=== PATIENT | male | born 1950 | race Caucasian/White ===

== ENCOUNTER → 2016-12-27 | Outpatient (CLI) | payer MEDICARE, BC ==
--- NOTE | 2016-12-27 15:04 | XR ---
EXAMINATION TYPE: XR KUB DATE OF EXAM: 12/27/2016 COMPARISON: NONE HISTORY: TECHNIQUE: One view abdominal series FINDINGS: No interval change. Multiple left-sided kidney stones are present, the largest towards the lower pole measures approximately 17 to 18 mm. There are at least 10 stones present. There is retained fecal debris correlate for fecal stasis. No obstruction or pneumoperitoneum evident . Arthropathy noted in the right hip, degenerative disc changes in the visualized spine Chronic deformity involving the right acetabulum noted. IMPRESSION: 1. Stable left-sided nephrolithiasis.
== END | disposition home or self-care (01) ==
LOC: RADXRMAIN 14:44
PROVIDERS: ATTEND Physician Assistant
DX: N20.0 Calculus of kidney (principal)
CPT/HCPCS: 74000

== ENCOUNTER → 2017-01-14 | Outpatient (CLI) | payer MEDICARE, OTHER ==
--- NOTE | 2017-01-15 07:21 | CT ---
EXAMINATION TYPE: CT abdomen pelvis wo con DATE OF EXAM: 01/14/2017 COMPARISON: Previous study dated 01/27/2016. HISTORY: Kidney stones CT DLP: 719.00 mGycm Automated exposure control for dose reduction was used. FINDINGS: Visualized portions of the lungs are clear. There is no pleural or pericardial fluid. The h eart is not enlarged. Within the abdomen, the liver, spleen and gallbladder appear normal. Both adrenal glands appear normal. The pancreas is unremarkable. The right kidney has a normal morphologic appearance. There are multiple calcifications within the le ft kidney. This is essentially unchanged from previous with the largest stone being in the lower pole and measuring approximately 1.3 cm. There is no evidence of hydronephrosis. There is mild atheromatous calcification of the aorta. There is no significant retroperitoneal, iliac or inguinal adenopathy. The bladder is unremarkable. There is extensive diverticular change involving the sigmoid colon with scattered diverticula elsewhe re throughout the left side of the colon. The appendix is normal. Small bowel loops are normal in caliber. There is no free fluid and no free air Both hips are nonspherical. There is degenerative disc disease and facet arthropathy and hypertrophic spondylosis throughout the spine. IMPRESSION: 1. NONOBSTRUCTING LEFT-SIDED NEPHROLITHIASIS, ESSENTIALLY UNCHANGED FROM PREVIOUS. 2. DIVERTICULOSIS OF THE LEFT SIDE OF THE COLON. 3. BOTH HIPS ARE NONSPHERICAL. PLEASE CORRELATE CLINICALLY FOR FEMOROACETABULAR IMPINGEMENT SYNDROME IMPINGEMENT SYNDROME. 4. DEGENERATIVE CHANGES WITHIN THE SPINE.
== END | disposition home or self-care (01) ==
LOC: RADCTMAIN 14:12
PROVIDERS: ATTEND Urology
DX: N20.0 Calculus of kidney (principal); K57.90 Diverticulosis of intestine, part unspecified, without perforation or abscess without bleeding
CPT/HCPCS: 74176

== ENCOUNTER 2017-02-06 10:15 | Inpatient (IN) | payer MEDICARE, OTHER ==
[2017-03-28 11:50] VITALS: BMI 28.7
[2017-04-03] MEDS ORDERED: Pre Op ABX Message 1 EACH MISC MISCELLANE ONE (05:00)
[2017-04-03] MEDS ORDERED: ONDANSETRON 4 MG/2 ML VIAL IVP ONE (05:59)
[2017-04-03] MEDS ORDERED: DEXAMETHASONE SOD PHOSPHATE 10 MG/ML 1 ML VIAL IV ONE (05:59)
[2017-04-03] MEDS ORDERED: SCOPOLAMINE 1.5MG/72HR PATCH TRANSDERM ONE (05:59)
[2017-04-03] MEDS ORDERED: LIDOCAINE 1% 20 ML VIAL (10MG/ML) FOR IV START INTRADERMA PRN (05:59)
[2017-04-03] MEDS ORDERED: MIDAZOLAM 2 MG/2 ML VIAL IV PRN (05:59)
[2017-04-03] MEDS: LACTATED RINGERS 1,000 ML IV SCH (07:09)
[2017-04-03 07:23] LABS: Glucose,Whole Blood 139 mg/dL (75-99)
[2017-04-03] MEDS ORDERED: GLYCOPYRROLATE 0.2 MG/ML 2 ML VIAL ONE (08:22)
[2017-04-03] MEDS ORDERED: LIDOCAINE 1% INJ 10MG/ML (20 ML MDV) ONE (08:22)
[2017-04-03] MEDS ORDERED: PROPOFOL 10 MG/ML 20 ML VIAL IV ONE (08:22)
[2017-04-03] MEDS ORDERED: ROCURONIUM BROMIDE 10 MG/ML 10 ML VIAL IV ONE (08:22)
[2017-04-03] MEDS ORDERED: NEOSTIGMINE 1 MG/ML 10 ML VIAL ONE (08:22)
[2017-04-03] MEDS ORDERED: SUCCINYLCHOLINE CHLORIDE 100 MG/5 ML SYR IV ONE (08:22)
[2017-04-03] MEDS ORDERED: MIDAZOLAM 2 MG/2 ML VIAL ONE (08:22)
[2017-04-03] MEDS ORDERED: fentaNYL (PF) 50 MCG/ML 2 ML AMP ONE (08:22)
--- NOTE | 2017-04-03 08:26 | XR ---
Abdomen HISTORY: Left renal calculus Frontal view of the abdomen correlated prior abdomen 12/27/2016, CT abdomen pelvis 01/14/2017 Multiple calculi are present within the left kidney. Largest calcification measures approximately 15 mm, there are at least 10 calcifications suspected. There is retained fecal debris throughout much of the colon. No pneumoperitoneum or bowel obstruction. Degenerative disc changes are present within th e visualized spine. Lung bases are not included on the exam. IMPRESSION: Left nephrolithiasis.
[2017-04-03] MEDS ORDERED: IOHEXOL 350 MG/ML (PER ML) 100ML BTL MISCELLANE ONE (10:16)
[2017-04-03] MEDS ORDERED: ONDANSETRON 4 MG/2 ML VIAL IVP PRN (10:45)
[2017-04-03] MEDS ORDERED: MAG HYDROX/AL HYDROX/SIMETH 30 ML CUP PO PRN (10:45)
[2017-04-03] MEDS ORDERED: ACETAMINOPHEN TAB 325 MG TAB PO PRN (10:45)
[2017-04-03] MEDS ORDERED: NALOXONE 0.4 MG/ML 1 ML VIAL IV PRN (10:48)
[2017-04-03] MEDS ORDERED: HYDROmorphone PCA 5 MG/25 ML SYRINGE IV PRN (10:48)
--- NOTE | 2017-04-03 10:57 | P.OP ---
Date of Procedure: 04/03/17 Preoperative Diagnosis: Left renal calculi large, malrotation of left kidney postsurgical Postoperative Diagnosis: Same Procedure(s) Performed: Cystoscopy, placement of 5-Ethiopian occluding balloon catheter, the penis nephrostomy (Dr. Bynum) percutaneous nephrostolithotomy at ultrasound placement of 12 J nephrostomy Anesthesia: BONIFACIO Surgeon: Alvino Manzanares Estimated Blood Loss (ml): 400 Pathology: other Condition: stable (Stone) Disposition: PACU Indications for Procedure: The patient is a 67-year-old gentleman with a history of kidney stone disease. He had a partial nephrectomy many years ago for kidney stones. He has a malrotated kidney secondarily. It a percutaneous nephrostolithotomy about 10 years ago. He has been having recurrent pain. A computed tomography scan in follow-up identified a large volume of kidney stones throughout the kidney. He comes for percutaneous nephrostolithotomy. Description of Procedure: Patient is brought to the operating suite he is given a successful general endotracheal anesthesia on the transport gurney. He is prepped and draped sterilely and cystoscopy with a 22-Ethiopian sheath and Foroblique lens identifies a normal urethra, nonobstructing prostate. The bladder is unremarkable. The left ureteral office is identified and intubated with a 5-Ethiopian occluding balloon catheter. Over an 0. 25 wire the catheter is passed up into the renal pelvis. The patient is placed in prone position with care to airways and extremities. Dr. Lipscomb of radiology performed percutaneous access to a left lower pole calyx. Of note is a malrotation of the kidney. The ureter goes anterior and in courses lateral. The upper pole collecting system runs posterior to the ureter and an AP traction. The lower pole is inferior and posterior on an AP projection. We were able to access the lower pole calyx. We with some difficulty unable to pass the catheter down the ureter. We dilate the collecting system to 30-Ethiopian and introduced a 30-Ethiopian sheath. It is markedly scarred doing this. It reduced the rigid scope into the collecting system. There is a moderate amount of bleeding due to the scarring. Unable to remove a large volume of kidney stones using grasping forceps and the ultrasound to break it up however there is still remaining stone. The flexible scope into another calyx and the lower pole however the bleeding becomes significant enough that I'm unable to see adequately. An pass the scope up in the UPJ area. I attempted to identify the upper pole calyx but I'm unable to do so. I elected terminate the procedure due to the bleeding. With difficulty I am able to eventually get a 12-Ethiopian J nephrostomy tube over the wire and leave it in the renal pelvis course and out through the lower pole calyx. The patient is awake and returned recovery room good condition. Blood loss is about 400 mL. He will need a secondary nephrostolithotomy. He may need a second nephrostomy access.
[2017-04-03] MEDS: HYDROmorphone 0.5 MG/0.5 ML SYRINGE IVP PRN ×2 (11:02→11:10)
[2017-04-03 11:27] LABS: Glucose,Whole Blood 180 mg/dL (75-99)
[2017-04-03 11:29] VITALS: RESP 16
--- NOTE | 2017-04-03 11:36 | FL ---
EXAMINATION TYPE: FL Perc Nephrostomy New Access DATE OF EXAM: 04/03/2017 COMPARISON: CT 01/06/2017 HISTORY: Left-sided nephrolithiasis PROCEDURE: Maximal barrier technique was utilized. The skin overlying the left kidney was localized using fluor oscopy and the overlying skin prepped and draped. Lidocaine used for local anesthesia. Skin clarissa wa s made with a scalpel. Access was gained under fluoroscopy, following placement of a ureteral occlus ion balloon by the referring clinician and instillation of air in the renal collecting system with a 21-gauge needle to the kidney. A suitable posterior calyx was chosen. A 0.018 inch wire was advanc ed. The access site was dilated and subsequently a sheath was advanced into the renal pelvis followi ng dilation with balloon along the tract. Urine returned in the hub of the catheter. The patient unde rwent nephrolithotomy by the referring clinician. The patient remained in stable condition without complication. The patient was discharged to observation. IMPRESSION: STATUS POST NEPHROSTOMY PLACEMENT FOR NEPHROLITHOTOMY WITH FLUOROSCOPIC GUIDANCE. THIS PROCEDURE PER FORMED BY THE UNDERSIGNED.
[2017-04-03] MEDS: SODIUM CHLORIDE 0.45% 1,000 ML IV SCH ×2 (12:15→21:04)
[2017-04-03] MEDS: KETOROLAC 30 MG/ML 1 ML VIAL IVP SCH ×2 (14:36→16:58)
[2017-04-03] MEDS: INSULIN ASPART 100 UNIT/ML 1 ML 10 ML VIAL SQ SCH ×3 (14:36→21:01)
[2017-04-03 16:31] LABS: Glucose,Whole Blood 175 mg/dL (75-99)
[2017-04-03 20:32] LABS: Glucose,Whole Blood 142 mg/dL (75-99)
[2017-04-03] MEDS: metFORMIN 500 MG TAB PO SCH (21:00)
[2017-04-04] MEDS: KETOROLAC 30 MG/ML 1 ML VIAL IVP SCH ×5 (00:43→23:02)
[2017-04-04] MEDS: LACTATED RINGERS 1,000 ML IV SCH (04:57)
[2017-04-04 07:59] LABS: Glucose,Whole Blood 138 mg/dL (75-99)
[2017-04-04] MEDS: INSULIN ASPART 100 UNIT/ML 1 ML 10 ML VIAL SQ SCH ×4 (08:41→21:13)
[2017-04-04] MEDS: amLODIPine 5 MG TAB PO SCH (08:42)
[2017-04-04] MEDS: LINAGLIPTIN 5 MG TABLET PO SCH (08:42)
[2017-04-04] MEDS: metFORMIN 500 MG TAB PO SCH ×2 (08:42→21:09)
[2017-04-04] MEDS ORDERED: HYDROcodone/APAP 5-325MG 1 EACH TAB PO PRN (10:12)
[2017-04-04 11:24] LABS: Glucose,Whole Blood 137 mg/dL (75-99)
--- NOTE | 2017-04-04 12:49 | P.PN ---
Subjective The patient is in his first postoperative day from a left percutaneous nephrostolithotomy, incomplete. He had a large volume of stone that was removed but a large volume he remains. Bleeding occurred due to significant scarring of his collecting system from previous surgeries including a partial nephrectomy. He will require a secondary nephrostolithotomy. This is been discussed with the patient. Arrangements will be made for next week. Objective - Vital Signs Vital signs: Vital Signs Temp 97.3 F L 04/04/17 00:00 Pulse 68 04/04/17 09:00 Resp 16 04/04/17 09:00 BP 123/56 04/04/17 00:00 Pulse Ox 95 04/04/17 00:00 Intake & Output 04/03/17 04/04/17 04/04/17 18:59 06:59 18:59 Intake Total 1975 1500 250 Output Total 1450 1525 228 Balance 525 -25 22 Intake: IV 1974 Intake, IV Titration 1100 Amount Sodium Chloride 0.45% 1, 1100 000 ml @ 100 mls/hr IV . Q10H [facility] Rx#:[id number] Oral 400 250 Output: Drainage 150 275 3 Left 150 275 3 Urine 900 1250 225 Uretheral (Caba) 350 Estimated Blood Loss 400 Other: Voiding Method Indwelling Catheter Indwelling Catheter Indwelling Catheter # Voids 1 - Labs Labs: Abnormal Lab Results - Last 24 Hours (Table) 04/03/17 04/03/17 04/04/17 Range/Units 16:28 20:01 07:45 POC Glucose (mg/dL) 175 H 142 H 138 H (75-99) mg/dL 04/04/17 Range/Units 11:20 POC Glucose (mg/dL) 137 H (75-99) mg/dL
[2017-04-04 17:13] LABS: Glucose,Whole Blood 141 mg/dL (75-99)
[2017-04-04 20:06] LABS: Glucose,Whole Blood 167 mg/dL (75-99)
[2017-04-05] MEDS: SODIUM CHLORIDE 0.45% 1,000 ML IV SCH ×3 (00:24→05:20)
[2017-04-05] MEDS: KETOROLAC 30 MG/ML 1 ML VIAL IVP SCH (05:18)
[2017-04-05 07:10] VITALS: BP 146/73; PULSE 70; TEMP 97
[2017-04-05 07:16] LABS: Glucose,Whole Blood 138 mg/dL (75-99)
--- NOTE | 2017-04-05 07:39 | P.DS ---
Providers Date of admission: 04/03/17 06:53 Attending physician: Alvino Manzanares Primary care physician: [facility] Course: The patient was admitted to the hospital 04/03/2017 for a left percutaneous nephrostolithotomy. This was done but incompletely due to complicated anatomy from previous partial nephrectomy as well as some bleeding. He has recuperated nicely. He'll be discharged home and have a secondary nephrostolithotomy next week. He'll be discharged home with the nephrostomy tube. He will also be given a prescription of [place]. He'll resume his home medications. I will contact him with arrangements. Patient Condition at Discharge: Good Plan - Discharge Summary Discharge Rx Participant: Yes New Discharge Prescriptions: New HYDROcodone/APAP 5-325MG [[place] 5-325] 1 tab PO Q4HR PRN #20 tab PRN Reason: Pain Control No Action metFORMIN HCL [Metformin HCl ER] 1,000 mg PO BID amLODIPine BESYLATE [Amlodipine Besylate] 5 mg PO DAILY Simvastatin 40 mg PO HS sitaGLIPtin [Januvia] 50 mg PO DAILY valACYclovir [Valtrex] 500 mg PO DAILY PRN PRN Reason: Cold Sores Aspirin 81 mg PO DAILY Multivitamin [Men's Multi-Vitamin] 1 tab PO DAILY Discharge Medication List Simvastatin 40 mg PO HS 02/10/15 [History] amLODIPine BESYLATE [Amlodipine Besylate] 5 mg PO DAILY 02/10/15 [History] metFORMIN HCL [Metformin HCl ER] 1,000 mg PO BID 02/10/15 [History] sitaGLIPtin [Januvia] 50 mg PO DAILY 01/27/16 [History] valACYclovir [Valtrex] 500 mg PO DAILY PRN 01/27/16 [History] Aspirin 81 mg PO DAILY 02/01/16 [History] Multivitamin [Men's Multi-Vitamin] 1 tab PO DAILY 02/01/16 [History] HYDROcodone/APAP 5-325MG [[place] 5-325] 1 tab PO Q4HR PRN #20 tab 04/05/17 [Rx] Activity/Diet/Wound Care/Special Instructions: Discharge home with nephrostomy tube. I am making arrangements for a secondary percutaneous nephrostolithotomy and will contact the patient. Discharge Disposition: HOME SELF-CARE
[2017-04-05] MEDS: INSULIN ASPART 100 UNIT/ML 1 ML 10 ML VIAL SQ SCH (08:10)
[2017-04-05] MEDS: LINAGLIPTIN 5 MG TABLET PO SCH (08:10)
[2017-04-05] MEDS: metFORMIN 500 MG TAB PO SCH (08:11)
[2017-04-05] MEDS: amLODIPine 5 MG TAB PO SCH (08:11)
== END 2017-04-05 10:32 | disposition home or self-care (01) | DRG 661 ==
LOC: 2ORMAIN 04-03 06:53 → 3SUR 04-03 12:05
PROVIDERS: ADMIT Urology; ATTEND Urology
PROC: 0TC18ZZ Extirpation of Matter from Left Kidney, Via Natural or Artificial Opening Endoscopic (ICD-10-PCS; 2017-04-03)
PROC: 0T9430Z Drainage of Left Kidney Pelvis with Drainage Device, Percutaneous Approach (ICD-10-PCS; principal; 2017-04-03 08:30)
DX: N20.0 Calculus of kidney (principal); I10 Essential (primary) hypertension; Q63.2 Ectopic kidney; Z90.5 Acquired absence of kidney; Z79.84 Long term (current) use of oral hypoglycemic drugs; Z79.82 Long term (current) use of aspirin; Z79.899 Other long term (current) drug therapy; Z88.2 Allergy status to sulfonamides; E78.00 Pure hypercholesterolemia, unspecified; Z85.828 Personal history of other malignant neoplasm of skin; Z82.49 Family history of ischemic heart disease and other diseases of the circulatory system; Z82.3 Family history of stroke; Z87.891 Personal history of nicotine dependence
CPT/HCPCS: 36415; 50432; 74000; 82365; 83036; 86850; 86900; 86901

== ENCOUNTER → 2017-03-27 | Outpatient (CLI) | payer MEDICARE, OTHER ==
[2017-03-27 13:11] LABS: Basophils # (A) 0.1 k/uL (0-0.2); Basophils % (A) 1 %; CH 29.9; CHCM 32.4; Eosinophils # (A) 0.1 k/uL (0-0.7); Eosinophils % (A) 1 %; HCT 45.5 % (39.0-53.0); HDW 2.79; HGB 14.5 gm/dL (13.0-17.5); Luc # (Auto) 0.16; Luc % (Auto) 2; Lymphocytes # (A) 1.7 k/uL (1.0-4.8); Lymphocytes % (A) 21 %; MCH 29.5 pg (25.0-35.0); MCHC 31.8 g/dL (31.0-37.0); MCV 92.8 fL (80.0-100.0); Mean Platelet Volume 7.6; Monocytes # (A) 0.4 k/uL (0-1.0); Monocytes % (A) 6 %; Neutrophils # (A) 5.4 k/uL (1.3-7.7); Neutrophils % (A) 69 %; RBC 4.91 m/uL (4.30-5.90); RDW 14.7 % (11.5-15.5); WBC 7.9 k/uL (3.8-10.6); WBC (Perox) 7.92
[2017-03-27 13:25] LABS: ALT 62 U/L (21-72); AST 39 U/L (17-59); Alkaline Phosphatase 81 U/L (38-126); Anion Gap 9 mmol/L; Blood Urea Nitrogen 16 mg/dL (9-20); Carbon Dioxide 29 mmol/L (22-30); Chloride 104 mmol/L (98-107); Glucose 116 mg/dL (74-99); Non-African American GFR(MDRD) >60 (>60 ml/min/1.73 sqM); Potassium 4.6 mmol/L (3.5-5.1); Sodium 142 mmol/L (137-145); Total Bilirubin 0.6 mg/dL (0.2-1.3); Total Protein 7.4 g/dL (6.3-8.2)
[2017-03-27 13:36] LABS: Appearance,Urine Clear (Clear); Bacteria,Urine Rare /hpf; Bilirubin,Urine Negative (Negative); Glucose,Urine (UA) Negative (Negative); Ketones,Urine Negative (Negative); Leukocyte Esterase,Urine Trace (Negative); Mucus,Urine Rare /hpf; Nitrite,Urine Negative (Negative); PH, Urine 6.5 (5.0-8.0); Particle Count 1709; Protein,Urine Negative (Negative); RBC,Urine 4 /hpf (0-5); Specific Gravity,Urine 1.012 (1.001-1.035); Squamous Epithelial Cell,Urine <1 /hpf (0-4); UA Billing (MACRO vs. MICRO) MICRO; Urobilinogen,Urine <2.0 mg/dL (<2.0); WBC,Urine 3 /hpf (0-5)
== END | disposition home or self-care (01) ==
LOC: LABPAT 11:39
PROVIDERS: ATTEND Urology
DX: Z01.812 Encounter for preprocedural laboratory examination (principal); N20.0 Calculus of kidney; E78.00 Pure hypercholesterolemia, unspecified; N39.0 Urinary tract infection, site not specified; R35.0 Frequency of micturition; R31.29 Other microscopic hematuria
CPT/HCPCS: 36415; 80053; 81001; 85025; 86850; 86900; 86901; 87086

== ENCOUNTER 2017-04-10 07:29 | Day surgery (SDC) | payer MEDICARE, OTHER ==
[2017-04-09 10:21] VITALS: BMI 28.3
[~2017-04-10 07:29] MED LIST: DEXAMETHASONE SOD PHOSPHATE 10 MG/ML 1 ML VIAL IV ONE; GENTAMICIN 120 MG in SODIUM CHLORIDE 0.9% 100 ML IVPB ONE; HYDROmorphone 0.5 MG/0.5 ML SYRINGE IVP PRN; MIDAZOLAM 2 MG/2 ML VIAL IV PRN; ONDANSETRON 4 MG/2 ML VIAL IVP ONE
--- NOTE | 2017-04-10 07:46 | XR ---
Abdomen HISTORY: Kidney stones Frontal view of the abdomen submitted on 2 images and correlated to prior exam of 04/03/2017 Interval placement of a left-sided nephrostomy tube. Multiple calcifications are present over the lef t kidney, there is reduction number of calcifications. Lung bases are clear. Bowel gas may obscure de tail. IMPRESSION: Interval procedural changes. Left-sided nephrolithiasis.
[2017-04-10 08:23] LABS: Glucose,Whole Blood 126 mg/dL (75-99)
[2017-04-10 08:32] LABS: CH 29.3; CHCM 32.6; HCT 36.9 % (39.0-53.0); HDW 2.95; HGB 12.1 gm/dL (13.0-17.5); MCH 29.9 pg (25.0-35.0); MCHC 32.9 g/dL (31.0-37.0); MCV 90.7 fL (80.0-100.0); Mean Platelet Volume 9.3; RBC 4.07 m/uL (4.30-5.90); RDW 15.7 % (11.5-15.5); WBC 9.4 k/uL (3.8-10.6)
[2017-04-10] MEDS ORDERED: LIDOCAINE 1% 20 ML VIAL (10MG/ML) FOR IV START INTRADERMA ONE (08:32)
[2017-04-10] MEDS: LACTATED RINGERS 1,000 ML IV SCH (08:33)
[2017-04-10 08:39] LABS: Anion Gap 11 mmol/L; Blood Urea Nitrogen 20 mg/dL (9-20); Calcium 9.7 mg/dL (8.4-10.2); Carbon Dioxide 23 mmol/L (22-30); Chloride 105 mmol/L (98-107); Glucose 127 mg/dL (74-99); Non-African American GFR(MDRD) >60 (>60 ml/min/1.73 sqM); Sodium 139 mmol/L (137-145)
[2017-04-10 08:42] LABS: Potassium 5.2 mmol/L (3.5-5.1)
[2017-04-10] MEDS ORDERED: HYDROmorphone (PF) 1 MG/ML ONE (10:24)
[2017-04-10] MEDS ORDERED: SUCCINYLCHOLINE CHLORIDE 100 MG/5 ML SYR IV ONE (10:24)
[2017-04-10] MEDS ORDERED: ePHEDrine SULFATE/0.9% NACL/PF 50 MG/5 ML SYRINGE IV ONE (10:24)
[2017-04-10] MEDS ORDERED: MIDAZOLAM 2 MG/2 ML VIAL ONE (10:24)
[2017-04-10] MEDS ORDERED: PROPOFOL 10 MG/ML 20 ML VIAL IV ONE (10:24)
[2017-04-10] MEDS ORDERED: LIDOCAINE 1% INJ 10MG/ML (20 ML MDV) ONE (10:24)
[2017-04-10] MEDS ORDERED: PHENYLEPHRINE-0.9% NACL SYG 1 MG/10 ML SYRINGE ONE (10:24)
[2017-04-10] MEDS ORDERED: fentaNYL (PF) 50 MCG/ML 2 ML AMP ONE (10:24)
[2017-04-10] MEDS ORDERED: IOHEXOL 350 MG/ML (PER ML) 100ML BTL MISCELLANE ONE ×2 (10:53)
[2017-04-10] MEDS ORDERED: HYDROcodone/APAP 5-325MG 1 EACH TAB PO PRN (12:08)
[2017-04-10] MEDS ORDERED: MAG HYDROX/AL HYDROX/SIMETH 30 ML CUP PO PRN (12:09)
[2017-04-10] MEDS ORDERED: ONDANSETRON 4 MG/2 ML VIAL IVP PRN (12:09)
[2017-04-10] MEDS ORDERED: ACETAMINOPHEN TAB 325 MG TAB PO PRN (12:09)
[2017-04-10] MEDS ORDERED: NALOXONE 0.4 MG/ML 1 ML VIAL IV PRN (12:11)
[2017-04-10] MEDS ORDERED: HYDROmorphone PCA 5 MG/25 ML SYRINGE IV PRN (12:11)
[2017-04-10] MEDS ORDERED: SODIUM CHLORIDE 0.45% 1,000 ML IV SCH (12:15)
--- NOTE | 2017-04-10 12:16 | P.OP ---
Date of Procedure: 04/10/17 Preoperative Diagnosis: Retained left renal calculi, distorted left renal anatomy post partial nephrectomy Postoperative Diagnosis: Same Procedure(s) Performed: Secondary percutaneous nephrostolithotomy, replacement of 12-Urdu J nephrostomy Anesthesia: BONIFACIO Surgeon: Alvino Manzanares Estimated Blood Loss (ml): 300 Pathology: other (Stone) Condition: stable Disposition: PACU Indications for Procedure: The patient is 67. Many years ago 8 a partial nephrectomy for kidney stones. He still has had recurrent stone disease. He has markedly distorted anatomy from the partial nephrectomy. He underwent percutaneous nephrostolithotomy a week ago for a large volume of left renal calculi. I removed about half the stone but due to bleeding from the scarring from the kidney the procedure was terminated. He comes for a secondary nephrostolithotomy today. Description of Procedure: Patient is brought to the operating suite and given a general endotracheal anesthesia. A Caba catheters placed sterilely. He's placed in a prone position on the operating table. Fluoroscopy identifies established nephrostomy tube. Through the 12 J nephrostomy and 035 Glidewire is passed down into the distal ureter. I removed the J nephrostomy and over this elect to dilate leading balloon in order to place a large sheath remove stone. It was extremely difficult to do this due to scarring. I'm able to eventually get the nephrostomy tube sheath into the kidney. There is a moderate amount of bleeding. The seems to subside. I looked throughout the collecting system best I can with the flexible nephroscope identify 3 large stones are basketed. I just cannot identify due to edema noted anatomy. Acted terminate the procedure. Place a 12 J nephrostomy tube over the working wire and remove the wire. It is secured to the skin with 2-0 silk. Patient awake and returned recovery in good condition. It is whether I need to do further procedures to try to remove stone or terminate the procedures. I'm afraid that he'll continue to have bleeding and difficulty. The options would be to remove the tube. To do a tertiary nephrostolithotomy here or at another center or to do nephrectomy. This will be discussed at length with the patient postoperatively. The patient returned recovery room good condition.
[2017-04-10] MEDS ORDERED: LACTATED RINGERS 1,000 ML IV ONE (12:35)
--- NOTE | 2017-04-10 14:13 | FL ---
Fluoroscopy HISTORY: Renal stones 1.54 minutes fluoroscopy time supplied to the referring clinician. 2 intraoperative C-arm images doc ument the procedure. See dictated report from urology.
[2017-04-10 15:00] VITALS: RESP 16
[2017-04-10 17:07] LABS: Glucose,Whole Blood 190 mg/dL (75-99)
[2017-04-10] MEDS: INSULIN ASPART 100 UNIT/ML 1 ML 10 ML VIAL SQ SCH ×2 (17:18→21:33)
[2017-04-10 20:17] LABS: Glucose,Whole Blood 194 mg/dL (75-99)
[2017-04-10] MEDS ORDERED: ATORVASTATIN 20 MG TAB PO SCH (21:00)
[2017-04-10] MEDS: CIPROFLOXACIN HCL 500 MG TAB PO SCH (21:30)
[2017-04-10] MEDS: metFORMIN 500 MG TAB PO SCH (21:30)
[2017-04-11 07:05] LABS: Glucose,Whole Blood 125 mg/dL (75-99)
[2017-04-11] MEDS: INSULIN ASPART 100 UNIT/ML 1 ML 10 ML VIAL SQ SCH (08:12)
[2017-04-11] MEDS: LACTATED RINGERS 1,000 ML IV SCH (08:12)
[2017-04-11 08:15] VITALS: BP 137/55; PULSE 73; TEMP 98.3
[2017-04-11] MEDS: metFORMIN 500 MG TAB PO SCH (08:28)
[2017-04-11] MEDS: CIPROFLOXACIN HCL 500 MG TAB PO SCH (08:28)
[2017-04-11] MEDS ORDERED: amLODIPine 5 MG TAB PO SCH (09:00)
[2017-04-11] MEDS ORDERED: LINAGLIPTIN 5 MG TABLET PO SCH (09:00)
--- NOTE | 2017-04-11 10:06 | P.DS ---
Providers Expected date of discharge: 04/11/17 Attending physician: Alvino Manzanares Primary care physician: Stated None Hospital Course: On the day of admission, the patient underwent a secondary left PCNL. Several large left renal calculi were removed, but the kidney could not be rendered stone free. The postoperative course was unremarkable. On the first postoperative day, he was comfortable. The Caba catheter was draining clear yellow urine. The nephrostomy tube was draining faintly pink tinged urine. He was afebrile with stable vital signs. Procedures: Secondary Left PCNL on 04/10/2017. Patient Condition at Discharge: Good Plan - Discharge Summary New Discharge Prescriptions: No Action metFORMIN HCL [Metformin HCl ER] 1,000 mg PO BID amLODIPine BESYLATE [Amlodipine Besylate] 5 mg PO DAILY Simvastatin 40 mg PO HS sitaGLIPtin [Januvia] 50 mg PO DAILY valACYclovir [Valtrex] 500 mg PO DAILY PRN PRN Reason: Cold Sores Aspirin 81 mg PO DAILY Multivitamin [Men's Multi-Vitamin] 1 tab PO DAILY HYDROcodone/APAP 5-325MG [[place] 5-325] 1 tab PO Q4HR PRN #20 tab PRN Reason: Pain Control Ciprofloxacin HCl [Cipro] 500 mg PO Q12HR Discharge Medication List Simvastatin 40 mg PO HS 02/10/15 [History] amLODIPine BESYLATE [Amlodipine Besylate] 5 mg PO DAILY 02/10/15 [History] metFORMIN HCL [Metformin HCl ER] 1,000 mg PO BID 02/10/15 [History] sitaGLIPtin [Januvia] 50 mg PO DAILY 01/27/16 [History] valACYclovir [Valtrex] 500 mg PO DAILY PRN 01/27/16 [History] Aspirin 81 mg PO DAILY 02/01/16 [History] Multivitamin [Men's Multi-Vitamin] 1 tab PO DAILY 02/01/16 [History] HYDROcodone/APAP 5-325MG [[place] 5-325] 1 tab PO Q4HR PRN #20 tab 04/05/17 [Rx] Ciprofloxacin HCl [Cipro] 500 mg PO Q12HR 04/10/17 [History] Follow up Appointment(s)/Referral(s): Alvino Manzanares MD [STAFF PHYSICIAN] - 1 Week Activity/Diet/Wound Care/Special Instructions: Discharge home with nephrostomy tube. Please provide patient with some saline and syringes to irrigate the tube as needed. Diet as tolerated. No strenuous activity. Discharge Disposition: HOME SELF-CARE
[2017-04-11 11:41] LABS: Glucose,Whole Blood 116 mg/dL (75-99)
== END 2017-04-11 13:00 | disposition home or self-care (01) ==
LOC: OR 07:29 → 3SUR 11:55 → OR 04-11 13:00
PROVIDERS: ATTEND Urology
DX: N20.0 Calculus of kidney (principal); Z90.5 Acquired absence of kidney; Z87.442 Personal history of urinary calculi; E11.9 Type 2 diabetes mellitus without complications; Z79.84 Long term (current) use of oral hypoglycemic drugs; I10 Essential (primary) hypertension; E78.00 Pure hypercholesterolemia, unspecified; K21.9 Gastro-esophageal reflux disease without esophagitis; N41.9 Inflammatory disease of prostate, unspecified; Z87.891 Personal history of nicotine dependence; Z79.2 Long term (current) use of antibiotics; Z79.82 Long term (current) use of aspirin; Z79.899 Other long term (current) drug therapy; Z88.2 Allergy status to sulfonamides
CPT/HCPCS: 50435; 94760; 94762; 80048; 85027; 82365; 83036; 74000; C1769 ×2; J2250; J1580; J1100; Q9967; J2405; J2001; J3010; J1170 ×2; J2370; J0330; J2704

== ENCOUNTER → 2017-05-21 | Outpatient (CLI) | payer MEDICARE, OTHER ==
--- NOTE | 2017-05-21 12:49 | XR ---
EXAMINATION TYPE: XR KUB DATE OF EXAM: 05/21/2017 COMPARISON: 04/10/2017 HISTORY: Pain TECHNIQUE: One view abdominal series FINDINGS: Chronic deformity of the right acetabulum noted with arthropathy of the hips and degenerative change lower lumbar spine. There are 6 calcifications overlying the left kidney. Largest measures approximat shireen 1 cm. Vascular calcifications noted. Retained fecal debris throughout the colon. IMPRESSION: 1. Multiple left-sided renal calculi appear stable.
== END | disposition home or self-care (01) ==
LOC: RADXRMAIN 11:30
PROVIDERS: ATTEND Urology
DX: N20.0 Calculus of kidney (principal)
CPT/HCPCS: 74018

== ENCOUNTER → 2018-10-31 | Outpatient (CLI) | payer MEDICARE, OTHER ==
[2018-10-31 13:07] LABS: Basophils # (A) 0.1 k/uL (0-0.2); Basophils % (A) 1 %; Eosinophils # (A) 0.1 k/uL (0-0.7); Eosinophils % (A) 2 %; HCT 44.8 % (39.0-53.0); HGB 14.7 gm/dL (13.0-17.5); Lymphocytes # (A) 1.8 k/uL (1.0-4.8); Lymphocytes % (A) 26 %; MCH 29.8 pg (25.0-35.0); MCHC 32.9 g/dL (31.0-37.0); MCV 90.6 fL (80.0-100.0); Mean Platelet Volume 7.7; Monocytes # (A) 0.3 k/uL (0-1.0); Monocytes % (A) 5 %; Neutrophils # (A) 4.5 k/uL (1.3-7.7); Neutrophils % (A) 65 %; Platelet Count 259 k/uL (150-450); RBC 4.95 m/uL (4.30-5.90); RDW 14.5 % (11.5-15.5)
[2018-10-31 13:15] LABS: Partial Thromboplastin Time 24.3 sec (22.0-30.0); Prothrombin Time 10.3 sec (9.0-12.0)
--- NOTE | 2018-10-31 13:16 | XR ---
EXAMINATION TYPE: XR chest 2V DATE OF EXAM: 10/31/2018 COMPARISON: Prior chest x-ray 01/27/2016 HISTORY: Presurgical TECHNIQUE: Frontal and lateral views of the chest are obtained. FINDINGS: There is no focal air space opacity, pleural effusion, or pneumothorax seen. The cardiac silhouette size is within normal limits. The osseous structures are intact. IMPRESSION: No acute cardiopulmonary process.
[2018-10-31 13:22] LABS: ALT 63 U/L (21-72); AST 64 U/L (17-59); African American GFR (CKD) >90 (>60 ml/min/1.73 sqM); Albumin 4.8 g/dL (3.5-5.0); Alkaline Phosphatase 77 U/L (38-126); Anion Gap 9 mmol/L; Blood Urea Nitrogen 21 mg/dL (9-20); Calcium 10.6 mg/dL (8.4-10.2); Carbon Dioxide 29 mmol/L (22-30); Chloride 99 mmol/L (98-107); Glucose 157 mg/dL (74-99); Potassium 4.4 mmol/L (3.5-5.1); Sodium 137 mmol/L (137-145); Total Bilirubin 0.8 mg/dL (0.2-1.3)
[2018-10-31 13:27] LABS: Appearance,Urine Cloudy (Clear); Bacteria,Urine Rare /hpf; Bilirubin,Urine Negative (Negative); Blood,Urine Small (Negative); Color,Urine Yellow; Glucose,Urine (UA) Negative (Negative); Ketones,Urine Negative (Negative); Leukocyte Esterase,Urine Large (Negative); Mucus,Urine Rare /hpf; Nitrite,Urine Positive (Negative); Protein,Urine Trace (Negative); RBC,Urine 26 /hpf (0-5); Squamous Epithelial Cell,Urine 1 /hpf (0-4); Urobilinogen,Urine <2.0 mg/dL (<2.0); WBC,Urine >182 /hpf (0-5)
== END | disposition home or self-care (01) ==
LOC: LABPAT 11:51
PROVIDERS: ATTEND Orthopaedic Surgery Orthopaedic Surgery of the Spine
DX: Z01.818 Encounter for other preprocedural examination (principal); M48.00 Spinal stenosis, site unspecified; R06.02 Shortness of breath; Z01.812 Encounter for preprocedural laboratory examination
CPT/HCPCS: 36415; 71046; 80053; 81001; 85025; 85610; 85730; 86850; 86900; 86901; 87070; 93005

== ENCOUNTER 2018-11-02 11:35 | Emergency (ER) | payer MEDICARE, OTHER ==
[~2018-11-02 11:35] MED LIST changes: -DEXAMETHASONE SOD PHOSPHATE 10 MG/ML 1 ML VIAL IV ONE; -GENTAMICIN 120 MG in SODIUM CHLORIDE 0.9% 100 ML IVPB ONE; -HYDROmorphone 0.5 MG/0.5 ML SYRINGE IVP PRN; +LIDOCAINE 5% PATCH TOPICAL ONE; -MIDAZOLAM 2 MG/2 ML VIAL IV PRN; -ONDANSETRON 4 MG/2 ML VIAL IVP ONE
[2018-11-02] MEDS ORDERED: METHOCARBAMOL 750 MG TAB PO ONE (12:08)
[2018-11-02] MEDS ORDERED: KETOROLAC 30 MG/ML 1 ML VIAL IVP STA (12:08)
[2018-11-02] MEDS ORDERED: SODIUM CHLORIDE 0.9% 1,000 ML IV ONE (12:08)
--- NOTE | 2018-11-02 12:16 | ED ---
General Adult HPI - General Chief complaint: Back Pain/Injury Stated complaint: Back pain Time Seen by Provider: 11/02/18 11:47 Source: patient, EMS Mode of arrival: EMS Limitations: no limitations - History of Present Illness Initial comments: Patient is a 68-year-old male with a history of spinal stenosis, sciatica, previous laminectomy who presents with a chief complaint of acute on chronic back pain. This been going on for about 3 days. The patient characterizes pain on the lateral aspect of bilateral thighs, worse on the right. He states the pain starts in his back and radiates to that area. He denies any recent injury or recent inciting incident. He states the symptoms are aggravated by walking and moving, specifically crossing the leg over the other leg. He is tried taking anti-inflammatories, narcotic pain medication at home. The patient states that he is scheduled to have a lumbar fusion on the of this month. He denies fever, chills, admits to nausea secondary to pain, denies vomiting. He denies any bowel or bladder incontinence, he denies any numbness or tingling. - Related Data Home Medications Medication Instructions Recorded Confirmed Simvastatin 40 mg PO HS 02/10/15 11/02/18 amLODIPine BESYLATE [Amlodipine 5 mg PO DAILY 02/10/15 11/02/18 Besylate] metFORMIN HCL [Metformin HCl ER] 1,000 mg PO BID 02/10/15 11/02/18 Multivitamin [Men's Multi-Vitamin] 1 tab PO DAILY 02/01/16 11/02/18 Glucosamine/Chondr Zhao A Sod [Osteo 1 tab PO BID 11/02/18 11/02/18 Bi-Flex Caplet] Naproxen Sodium [Aleve] 220 mg PO Q8H PRN 11/02/18 11/02/18 Spironolactone-Hctz 25-25Mg 1 tab PO BID 11/02/18 11/02/18 [Aldactazide 25-25 MG] Tamsulosin [Flomax] 0.4 mg PO DAILY 11/02/18 11/02/18 glipiZIDE XL [Glucotrol XL] 5 mg PO DAILY 11/02/18 11/02/18 Previous Rx's Medication Instructions Recorded Ibuprofen [Motrin] 800 mg PO TID #20 tab 11/02/18 Lidocaine 5% Patch [Lidoderm 5% 1 patch TOPICAL DAILY #10 patch 11/02/18 Patch] Methocarbamol [Robaxin] 750 mg PO TID #12 tab 11/02/18 oxyCODONE HCL [Oxaydo] 5 mg PO Q6H PRN 3 Days #12 tab 11/02/18 Allergies Allergy/AdvReac Type Severity Reaction Status Date / Time Sulfa (Sulfonamide Allergy Rash/Hives Verified 11/02/18 12:34 Antibiotics) Review of Systems ROS Statement: Those systems with pertinent positive or pertinent negative responses have been documented in the HPI. ROS Other: All systems not noted in ROS Statement are negative. Gastrointestinal: Reports: nausea Musculoskeletal: Reports: back pain, myalgia Past Medical History Past Medical History: Cancer, Diabetes Mellitus, GI Bleed, Hearing Disorder / Deafness, Hyperlipidemia, Hypertension, Musculoskeletal Disorder, Osteoarthritis (OA), Prostate Disorder, Renal Disease, Skin Disorder Additional Past Medical History / Comment(s): prostatitis, prostate nodule, L Kidney Stones - LT KIDNEY SCARRED FROM MULT SURG and is partially functioning, L leg VARICOSE VEINS, Basal Cell skin CA with removal, N/T IN LT FOOT and OCC IN LT LEG due to back problems, L DROP FOOT - WEARS BRACE at times; HERNIATED DISC L4-5, hearing loss R ear, diverticulosis. recent admission for GI bleeding History of Any Multi-Drug Resistant Organisms: None Reported Past Surgical History: Back Surgery, Orthopedic Surgery, Tonsillectomy Additional Past Surgical History / Comment(s): Lumbar laminectomy, discectomy L4-L5, Lt Kidney Open Surg FOR STONES, Percutaneous Nephrostolithotomy - Mult., cystocscopies, ureteral catheter, Mo ROTATOR CUFF. EXC Basal Cell skin cancer of Back, colonoscopy, lower back pain injections. LEFT percutaneous nephrolithotomy on 04/03/17-has a drain in @ this time. Past Anesthesia/Blood Transfusion Reactions: No Reported Reaction Past Psychological History: ADD/ADHD Smoking Status: Former smoker Past Alcohol Use History: None Reported Past Drug Use History: None Reported - Past Family History Mother Family Medical History: CVA/TIA Additional Family Medical History / Comment(s): Mother had a brain aneurysm. Father Family Medical History: Congestive Heart Failure (CHF), Myocardial Infarction (VT) Sister(s) Family Medical History: Cancer, CVA/TIA, Diabetes Mellitus Additional Family Medical History / Comment(s): skin basal and squamous General Exam Limitations: no limitations General appearance: alert, in no apparent distress Head exam: Present: atraumatic, normocephalic Eye exam: Present: normal appearance ENT exam: Present: normal exam Neck exam: Present: normal inspection Respiratory exam: Present: normal lung sounds bilaterally. Absent: respiratory distress, wheezes Cardiovascular Exam: Present: regular rate, normal rhythm GI/Abdominal exam: Present: soft. Absent: distended, tenderness Rectal exam: Present: normal rectal tone Extremities exam: Present: normal inspection, full ROM. Absent: tenderness, calf tenderness Back exam: Present: muscle spasm, paraspinal tenderness, other (patient has a midline surgical incision scar that is well healed without erythema or evidence of infection. there is no tenderness to palpation or percussion of the spine. ). Absent: tenderness, CVA tenderness (R), CVA tenderness (L), vertebral tenderness Neurological exam: Present: alert, oriented X3, other (patient has equal strength and sensation. he is able to move all extremities normally. ). Absent: normal gait, motor sensory deficit Psychiatric exam: Present: normal affect, normal mood Skin exam: Present: warm, dry, intact Course Vital Signs 11/02/18 11:38 Temperature 98.0 F Pulse Rate 67 Respiratory 20 Rate Blood Pressure 149/82 O2 Sat by Pulse 98 Oximetry Medical Decision Making - Medical Decision Making Patient presents with a chief complaint of back pain with radiation to bilateral thighs. On initial evaluation, vitals are stable, patient is in no acute distress. He is neurologically intact, she denies any bowel or bladder dysfunction, he states that he is having normal bowel movements, he denies any perianal or saddle anesthesia. Pain is worsened when the patient is placed in a frog leg position and downward pressure is applied to the knee. At this time, suspect acute worsening of chronic back pain along with obturator syndrome. Patient will be treated symptomatically with 5 mg of oxycodone, Robaxin, Toradol, and a lidocaine patch. We'll check basic labs. 1:20 PM Laboratory evaluation is patient is unremarkable. On reevaluation, the patient says his pain is improved. At this time, patient is stable for discharge. He'll be prescribed a 3 day course of oxycodone along with Robaxin, Motrin, and lidocaine patches. He was instructed to follow-up with his neurosurgeon, return to the emergency department if any new or concerning symptoms arise. She has verbalize understanding. Long discussion with the patient regarding the use of oxycodone. I stated that it has a high potential for abuse, and cause respiratory depression. He was instructed to take it no sooner than every 6 hours, and to discard the medication after 3 days if he no longer needs it. - Lab Data Result diagrams: 11/02/18 12:45 11/02/18 12:45 Lab Results 11/02/18 11/02/18 Range/Units 12:45 12:45 WBC 9.0 (3.8-10.6) k/uL RBC 4.87 (4.30-5.90) m/uL Hgb 14.4 (13.0-17.5) gm/dL Hct 43.2 (39.0-53.0) % MCV 88.7 (80.0-100.0) fL MCH 29.6 (25.0-35.0) pg MCHC 33.4 (31.0-37.0) g/dL RDW 14.5 (11.5-15.5) % Plt Count 242 (150-450) k/uL Neutrophils % 82 % Lymphocytes % 11 % Monocytes % 4 % Eosinophils % 0 % Basophils % 1 % Neutrophils # 7.4 (1.3-7.7) k/uL Lymphocytes # 1.0 (1.0-4.8) k/uL Monocytes # 0.4 (0-1.0) k/uL Eosinophils # 0.0 (0-0.7) k/uL Basophils # 0.1 (0-0.2) k/uL Sodium 135 L (137-145) mmol/L Potassium 4.3 (3.5-5.1) mmol/L Chloride 99 (98-107) mmol/L Carbon Dioxide 27 (22-30) mmol/L Anion Gap 9 mmol/L BUN 20 (9-20) mg/dL Creatinine 0.78 (0.66-1.25) mg/dL Est GFR (CKD-EPI)AfAm >90 (>60 ml/min/1.73 sqM) Est GFR (CKD-EPI)NonAf >90 (>60 ml/min/1.73 sqM) Glucose 165 H (74-99) mg/dL Calcium 9.4 (8.4-10.2) mg/dL Disposition Clinical Impression: Back pain, Sciatica Disposition: HOME SELF-CARE Condition: Good Instructions (If sedation given, give patient instructions): Acute Low Back Pain (ED) Is patient prescribed a controlled substance at d/c from ED?: Yes When asked, does pt state using other controlled substances?: No If prescribed controlled substance>3 days was MAPS reviewed?: Prescribed <3 Days If opioid is for acute pain is fill amount 7 days or less?: Yes If Rx opioid, was Start Talking consent form obtained?: Yes Referrals: John Paul Estrada MD [Primary Care Provider] - 1-2 days
[2018-11-02 13:02] LABS: Basophils # (A) 0.1 k/uL (0-0.2); Basophils % (A) 1 %; Eosinophils % (A) 0 %; HCT 43.2 % (39.0-53.0); HGB 14.4 gm/dL (13.0-17.5); Lymphocytes % (A) 11 %; MCH 29.6 pg (25.0-35.0); MCHC 33.4 g/dL (31.0-37.0); MCV 88.7 fL (80.0-100.0); Mean Platelet Volume 7.6; Monocytes # (A) 0.4 k/uL (0-1.0); Monocytes % (A) 4 %; Neutrophils # (A) 7.4 k/uL (1.3-7.7); Neutrophils % (A) 82 %; Platelet Count 242 k/uL (150-450); RBC 4.87 m/uL (4.30-5.90); RDW 14.5 % (11.5-15.5)
[2018-11-02 13:09] LABS: African American GFR (CKD) >90 (>60 ml/min/1.73 sqM); Anion Gap 9 mmol/L; Blood Urea Nitrogen 20 mg/dL (9-20); Calcium 9.4 mg/dL (8.4-10.2); Carbon Dioxide 27 mmol/L (22-30); Chloride 99 mmol/L (98-107); Glucose 165 mg/dL (74-99); Potassium 4.3 mmol/L (3.5-5.1); Sodium 135 mmol/L (137-145)
[2018-11-02 14:07] VITALS: BP 120/69; PULSE 76; RESP 18; TEMP 98.6
== END 2018-11-02 14:06 | disposition home or self-care (01) ==
LOC: EC 11:35
DX: M54.42 Lumbago with sciatica, left side (principal); M54.41 Lumbago with sciatica, right side; E11.9 Type 2 diabetes mellitus without complications; E78.5 Hyperlipidemia, unspecified; I10 Essential (primary) hypertension; M19.90 Unspecified osteoarthritis, unspecified site; Z85.828 Personal history of other malignant neoplasm of skin; N42.9 Disorder of prostate, unspecified; F90.9 Attention-deficit hyperactivity disorder, unspecified type; Z87.891 Personal history of nicotine dependence; Z79.84 Long term (current) use of oral hypoglycemic drugs; Z79.899 Other long term (current) drug therapy; Z88.2 Allergy status to sulfonamides
CPT/HCPCS: 36415; 80048; 85025; 99284; 96374; 96361; J1885

== ENCOUNTER 2018-11-12 06:24 | Inpatient (IN) | payer MEDICARE, OTHER ==
[~2018-11-12 06:24] MED LIST changes: +BACITRACIN 50,000 UNIT, POLYMYXIN B 500,000 UNIT in SODIUM CHLORIDE 0.9% IRRIGATIO 1,00... IRRIGATION ONE; +LIDOCAINE 1% 20 ML VIAL (10MG/ML) FOR IV START INTRADERMA PRN; -LIDOCAINE 5% PATCH TOPICAL ONE; +ONDANSETRON 4 MG/2 ML VIAL IVP ONE; +ceFAZolin IN SWFI 2 GM/20 ML SYRINGE IVP ONE
[2018-11-12] MEDS: LACTATED RINGERS 1,000 ML IV SCH (06:54)
[2018-11-12 06:58] LABS: Glucose,Whole Blood 160 mg/dL (75-99)
[2018-11-12] MEDS ORDERED: ePHEDrine SULFATE/0.9% NACL/PF 50 MG/5 ML SYRINGE IV ONE (07:26)
[2018-11-12] MEDS ORDERED: NEOSTIGMINE 1 MG/ML 10 ML VIAL ONE (07:26)
[2018-11-12] MEDS ORDERED: PROPOFOL 10 MG/ML 20 ML VIAL IV ONE (07:26)
[2018-11-12] MEDS ORDERED: GLYCOPYRROLATE 0.2 MG/ML 2 ML VIAL ONE (07:26)
[2018-11-12] MEDS ORDERED: MIDAZOLAM 2 MG/2 ML VIAL ONE (07:26)
[2018-11-12] MEDS ORDERED: ROCURONIUM BROMIDE 10 MG/ML 10 ML VIAL IV ONE (07:26)
[2018-11-12] MEDS ORDERED: SUCCINYLCHOLINE CHLORIDE 100 MG/5 ML SYR IV ONE (07:26)
[2018-11-12] MEDS ORDERED: HYDROmorphone (PF) 1 MG/ML ONE (07:26)
[2018-11-12] MEDS ORDERED: LIDOCAINE 1% INJ 10MG/ML (20 ML MDV) ONE (07:26)
[2018-11-12] MEDS ORDERED: fentaNYL (PF) 50 MCG/ML 2 ML AMP ONE (07:26)
[2018-11-12] MEDS ORDERED: GELATIN SPONGE,ABSORB (LARGE) 1 EACH SPONGE TOPICAL ONE (07:46)
[2018-11-12] MEDS ORDERED: LIDOCAINE 0.5%-EPI 1:200,000 50 ML VIAL SQ ONE (07:46)
[2018-11-12] MEDS ORDERED: THROMBIN (BOVINE) 5,000 UNIT VIAL TOPICAL ONE (07:46)
[2018-11-12] MEDS ORDERED: LACTATED RINGERS 1,000 ML IV ONE (08:35)
[2018-11-12] MEDS ORDERED: BENZOCAINE/MENTHOL LOZENG 1 EACH LOZENGE MUCOUS MEM PRN (11:45)
[2018-11-12] MEDS ORDERED: HYDROmorphone 1 MG/ML 1 ML SYRINGE IVP PRN (11:45)
[2018-11-12] MEDS ORDERED: MAGNESIUM HYDROXIDE 2,400 MG/10 ML CUP PO PRN (11:45)
[2018-11-12] MEDS ORDERED: ONDANSETRON 4 MG/2 ML VIAL IVP PRN (11:46)
[2018-11-12] MEDS ORDERED: HYDROcodone/APAP 5-325MG 1 EACH TAB PO PRN (11:46)
--- NOTE | 2018-11-12 11:58 | P.OP ---
Date of Procedure: 11/12/18 Preoperative Diagnosis: Spinal stenosis L3 4 and L4 5, spondylolisthesis L3 4, history of prior laminectomy and discectomy L45 L5-S1, low back pain, lower extremity pain, lower extremity radiculopathy, partially weakness Postoperative Diagnosis: Same Anesthesia: GETA Pathology: none sent Condition: stable Disposition: PACU Description of Procedure: DESCRIPTION OF PROCEDURE(S): BRIEF OPERATIVE NOTE Preoperative Diagnosis: Spinal stenosis L3 4 and L4 5, spondylolisthesis L3 4, history of prior laminectomy and discectomy L45 L5-S1, low back pain, lower extremity pain, lower extremity radiculopathy, partially weakness Postoperative Diagnosis:Spinal stenosis L3 4 and L4 5, spondylolisthesis L3 4, history of prior laminectomy and discectomy L45 L5-S1, low back pain, lower extremity pain, lower extremity radiculopathy, partially weakness Procedure: Laminectomy and decompression L3 4 Revision laminectomy and decompression L4 5 Minimally invasive Posterior lateral decompression and fusion L3 4 and L4 5 Minimally invasive Transforaminal lumbar interbody fusion for a 360 fusion L3 4 Discectomy for decompression L3 4 Placement of interbody graft L3 4 Local autogenous bone grafting Harvesting of bone marrow aspirate from the vertebral body of L3 Use of Cell Saver Use of bone graft extenders Surgeon: Dr. Dutton Porter Sample Case: Flavio GARCIA who is present throughout the entire the case persistence during positioning, dissection, exposure, visualization, and all crucial elements of the case as well as closure. Anesthesia: General anesthesia Estimated blood loss: Approximately 500 mL with 280 given back through Cell Saver Complications: None apparent Components implanted: K2M minimally invasive Gary pedicle screw system with 6.5 x 50 mm screws and 270 mm rods and 1 Burt interbody cage measuring 11 mm with 1 Osteoamp sponge and 30 mL of DBX bone fibers to supplemental local autogenous bone graft Disposition: To recovery room in good stable condition. OPERATIVE INDICATIONS The patient has had long-standing issues in their lower back and lower extremities. Patient had a history of any years ago of having laminectomy and decompression with discectomy at L4 5 and L5-S1 he went on to have a fusion at L5-S1 and was having worsening of symptoms with severe stenosis L3 4 and stenosis at L4 5 . He was developing a dynamic listhesis at L3 4 as well. His symptoms correlated well with his findings of change at L3 4 and L4 5. The patient has been through conservative treatment. He is not having progressive benefit despite aggressive conservative treatment and was having worsening of his symptoms and weakness in his lower extremities. We discussed various treatment options including surgery, and the patient wishes to proceed with surgery We discussed the risk, patient's alternatives and benefits of surgery including but not limited to, risk of bleeding risk of infection, risk of need for further surgery, risk of decreased, loss of motion, muscle function, malunion nonunion, hardware failure, nerve damage, paralysis, heart attack, blindness and . OPERATIVE SUMMARY After discussing all the risks, patient alternatives and benefits at length, the patient elected to proceed with surgical intervention, signed informed consent, and presented for their procedure. The patient was seen and examined in the preoperative holding area and the surgical site was marked. The patient was given antibiotics and brought to the operating room. The patient was sedated and intubated by anesthesia in standard fashion. The patient was positioned on to the operating room table in a prone position on the appropriate frame which was well-padded and well molded. We were careful to pad any bony prominences and pressure points. We were careful to maintain the patient's cervical spine and good neutral alignment and position throughout. The patient was prepped and draped in a normal standard fashion. An appropriate timeout and keystone protocol performed. We were able to proceed with the surgery. The local wound area was infiltrated with local anesthetic. I was able utilize C-arm guidance to establish appropriate position over the pedicles bilaterally at the appropriate levels at L3 4 and 5. With the appropriate levels confirmed was able to make small stab incisions over the appropriate pedicle sites bilaterally. Utilizing C-arm in his house able to establish a Jamshidi needle over the lateral aspect of the pedicle and advanced the trocar into the pedicle being careful not to breech superiorly inferiorly medially or laterally. Position was confirmed regularly with AP and lateral images on C-arm. I was able to establish the trocar into the pedicle appropriately into the posterior aspect of the vertebral body bilaterally at the appropriate levels of L3 4 and 5. This was done at each of the pedicle positions and each of the vertebrae. At L3 on the right I was able to withdraw approximately 20 mL of bone marrow aspirate to use later in the case for supplement for the bone graft. I was able place the guidewire into the trocar and into the vertebral body appropriately under C-arm guidance. Dissection was taken down over the wire to the appropriate starting position for the screw placed. The appropriate length screw was chosen, threaded over the guidewire and screwed appropriately into the pedicle and vertebral body under C-arm guidance in excellent alignment and position with good bony purchase. This is done at each of the screw sites at the appropriate levels at L3 4 and 5 bilaterally. With the screws intact I extended the incision to connect the screw hole sites on the most symptomatic side on the left. I dissected down to establish access over the pars and lamina to the base of the spinous process. I was able to expose the facet joint. The capsule the facet was taken down and showed some facet arthrosis at the joint. I started at L3 4 and I was able to use a combination of curettes and Kerrison rongeurs and a high-speed drill to take down the facet joint and do a facetectomy. Partial laminectomy was also performed. I was able get excellent foraminal decompression and central decompression with undermining across midline to perform a laminectomy centrally and contralaterally. The patient had severe central and bilateral stenosis which was remedied with the decompression As able get good central decompression. The ligamentum flavum was taken down to further decompress centrally and at bilateral neural foramen. I was able to expose the disc space and visualize the traversing nerve root. Note was made of some disc protrusion at the level causing further compression of the nerve root. I was able to establish a annulotomy at the appropriate level protecting soft tissue and neura l structures. Note was made of some disc desiccation at the disc. I performed a complete discectomy with accommodation of curettes and rasps and scrapers. I was able get good endplate preparation at the disc space. I sized for the appropriate size interbody spacer protecting the soft tissue and neural structures. The wound was copiously irrigated and suctioned dry. There is no evidence of any dural tear or leak. I was able to pack the disc space with local autogenous bone graft as well as a small amount of bone graft which was also placed into the interbody cage itself. Protecting the soft tissue structures and neural structures I was able place the interbody cage in good alignment and good position with good fit and fill at the interbody space. His issues was confirmed with C-arm guidance. At L4 5 I provided a decompression with revision laminectomy and was able get central decompression with the revision laminectomy. There is severe collapse at the disc space and I was not able to access the disc space well enough to place a interbody spacer at L4-L5. I felt we had good stability with the pedicle screws at L4 5. Good hemostasis maintained. There is no evidence of any dural tear or leak. The wound was irrigated and suctioned dry. With the hardware intact at L3 4 and L4 5, intraoperative C-arm imaging was again taken which showed good alignment and position of the hardware at the appropriate levels. We were then able to measure, contour and place the rods and appropriate hardware bilaterally. I was able to place capcrews, tighten them down, and torque them with the torque screwdriver appropriately. With this intact I was able to place the local autogenous bone graft with additional bone graft enhancer as necessary into the posterior lateral gutters over the decorticated transverse processes. The remainder of the bone graft was placed over the facet joint on the contralateral side after taking down the facet joint capsule. With the bone graft intact, a stable construct, and good decompression at the appropriate levels, we were able to proceed with closure. Good hemostasis was maintained. There is no evidence of dural tear or leak. The fascia was closed for a watertight closure. he subcuticular tissue was closed with absorbable suture. The wound was cleaned and dried and dressed with the appropriate dressing. The drapes were broken down. The patient was gently rolled back onto their hospital bed being careful to maintain their cervical spine and good neutral alignment and position. They were woken up by anesthesia, extubated, and brought to the recovery room in good stable condition. The patient will be admitted to the hospital for appropriate postoperative care, medical management and monitoring. We will continue to follow them closely about the postoperative course.
[2018-11-12] MEDS ORDERED: CEPHALEXIN 500 MG CAP PO SCH (12:00)
[2018-11-12] MEDS: HYDROmorphone 0.5 MG/0.5 ML SYRINGE IVP PRN ×6 (12:09→17:50)
--- NOTE | 2018-11-12 12:55 | XR ---
Limited lumbar spine HISTORY: Status post lumbar fusion 2 intraoperative C-arm images document the procedure.
[2018-11-12] MEDS ORDERED: KETOROLAC 30 MG/ML 1 ML VIAL IVP ONE (13:18)
[2018-11-12 13:29] LABS: Glucose,Whole Blood 152 mg/dL (75-99)
--- NOTE | 2018-11-12 14:06 | FL ---
Fluoroscopy HISTORY: Pain 1 minute 52 seconds fluoroscopy time supplied to the referring clinician. 2 intraoperative C-arm chemo ges document the procedure. See dictated report from orthopedic surgery.
[2018-11-12] MEDS: SODIUM CHLORIDE 0.9% 1,000 ML IV SCH (15:00)
[2018-11-12 15:43] VITALS: BMI 29.9
[2018-11-12] MEDS: ceFAZolin IN SWFI 2 GM/20 ML SYRINGE IVP SCH ×2 (16:09→23:50)
--- NOTE | 2018-11-12 17:38 | P.CONS ---
History of Present Illness - Reason for Consult Consult date: 11/12/18 Medical management Requesting physician: Mike Dutton - Chief Complaint Spinal stenosis - History of Present Illness 68-year-old male with PMH of hypertension, hyperlipidemia, diabetes mellitus, skin cancer presents to [facility] for elective laminectomy and decompression for spinal stenosis, spondylolithiasis. [facility] has been consulted for medical management of this patient. Patient was seen and examined. No acute events overnight. Patient reports lower back pain that is 4 out of 10 in severity which is aggravated by moving. He complains of numbness and tingling in the left lower extremity that is chronic in nature. He denies any bladder or bowel incontinence. He denies any saddle anesthesia. Patient denies any headache, lower extremity edema, nausea, vomiting, fever, cough, chest pain, shortness of breath, palpitations. Patient currently has a catheter in place. He denies any bowel movement or passing of gas since his surgery. Patient denies any dizziness. Review of Systems Pertinent positives and negatives as discussed in HPI, a complete review of systems was performed and all other systems are negative. Past Medical History Past Medical History: Cancer, Diabetes Mellitus, GI Bleed, Hearing Disorder / Deafness, Hyperlipidemia, Hypertension, Musculoskeletal Disorder, Osteoarthritis (OA), Prostate Disorder, Renal Disease, Skin Disorder Additional Past Medical History / Comment(s): prostatitis, prostate nodule, L Kidney Stones - LT KIDNEY SCARRED FROM MULT SURG and is partially functioning, L leg VARICOSE VEINS, Basal Cell skin CA with removal, N/T IN LT FOOT and OCC IN LT LEG due to back problems, L DROP FOOT - WEARS BRACE at times; HERNIATED DISC L4-5, hearing loss R ear, diverticulosis. recent admission for GI bleeding History of Any Multi-Drug Resistant Organisms: None Reported Past Surgical History: Back Surgery, Orthopedic Surgery, Tonsillectomy Additional Past Surgical History / Comment(s): Lumbar laminectomy, discectomy L4-L5, Lt Kidney Open Surg FOR STONES, Percutaneous Nephrostolithotomy - Mult., cystocscopies, ureteral catheter, Mo ROTATOR CUFF. EXC Basal Cell skin cancer of Back, colonoscopy, lower back pain injections. LEFT percutaneous nephrolithotomy on 04/03/17-has a drain in @ this time. Past Anesthesia/Blood Transfusion Reactions: No Reported Reaction Past Psychological History: ADD/ADHD Additional Psychological History / Comment(s): Pt resides with his spouse. He is independent. He uses a cane at times and a L foot brace due to his back problems and L foot drop. He drives. Smoking Status: Former smoker Past Alcohol Use History: None Reported Additional Past Alcohol Use History / Comment(s): Pt states he started smoking pipe about 1967 and quit in 1975 Past Drug Use History: None Reported - Past Family History Mother Family Medical History: CVA/TIA Additional Family Medical History / Comment(s): Mother had a brain aneurysm. Father Family Medical History: Congestive Heart Failure ([place]), Myocardial Infarction ([place]) Sister(s) Family Medical History: Cancer, CVA/TIA, Diabetes Mellitus Additional Family Medical History / Comment(s): skin basal and squamous Medications and Allergies Home Medications Medication Instructions Recorded Confirmed Type Simvastatin 40 mg PO HS 02/10/15 11/12/18 History amLODIPine BESYLATE [Amlodipine 5 mg PO DAILY 02/10/15 11/12/18 History Besylate] metFORMIN HCL [Metformin HCl ER] 1,000 mg PO BID 02/10/15 11/12/18 History Glucosamine/Chondr Zhao A Sod [Osteo 1 tab PO BID 11/02/18 11/12/18 History Bi-Flex Caplet] Ibuprofen [Motrin] 800 mg PO TID #20 tab 11/02/18 11/12/18 Rx Naproxen Sodium [Aleve] 220 mg PO Q8H PRN 11/02/18 11/12/18 History Spironolactone-Hctz 25-25Mg 1 tab PO BID 11/02/18 11/12/18 History [Aldactazide 25-25 MG] Tamsulosin [Flomax] 0.4 mg PO HS@199911/02/18 11/12/18 History glipiZIDE XL [Glucotrol XL] 5 mg PO DAILY 11/02/18 11/12/18 History Cephalexin [Keflex] 500 mg PO Q6HR 11/11/18 11/12/18 History Allergies Allergy/AdvReac Type Severity Reaction Status Date / Time Sulfa (Sulfonamide Allergy Rash/Hives Verified 11/12/18 14:22 Antibiotics) Physical Exam Vitals: Vital Signs Temp Pulse Resp BP Pulse Ox 11/12/18 14:00 91 16 131/72 99 11/12/18 13:35 96 16 120/65 99 11/12/18 13:20 98 16 121/72 98 11/12/18 13:05 100 16 120/71 98 11/12/18 12:50 98 16 122/70 96 11/12/18 12:35 96 16 128/75 95 11/12/18 12:20 96 16 121/72 98 11/12/18 12:05 96 16 120/78 99 11/12/18 11:49 97.3 F L 104 H 16 118/73 96 11/12/18 06:41 97.3 F L 86 17 155/86 97 Intake and Output 11/12/18 11/12/18 11/12/18 06:59 14:59 22:59 Intake Total 200 1601 Output Total 1150 Balance 200 451 Intake: IV 200 1601 Output: Urine 650 Estimated Blood Loss 500 Other: Voiding Method Indwelling Catheter Weight 94.6 kg General: [non toxic], [no distress], [appears at stated age] Derm: [warm], [dry] Head: [atraumatic], [normocephalic], [symmetric] Eyes: [EOMI], [no lid lag], [anicteric sclera] Mouth: [no lip lesion], [mucus membranes moist] Cardiovascular: [S1S2 reg], [no murmur], [positive DP pulse bilateral], Lungs: [CTA bilateral], [no rhonchi, no rales] , [no accessory muscle use] Abdominal: [soft], [ nontender to palpation], [no guarding], [no appreciable organomegaly] Ext: [no gross muscle atrophy], [no edema], [no contractures] Neuro: [no focal neuro deficits] Psych: [Alert], [oriented], [appropriate affect] Results Labs: Abnormal Lab Results - Last 24 Hours (Table) 11/12/18 11/12/18 Range/Units 06:48 13:26 POC Glucose (mg/dL) 160 H 152 H (75-99) mg/dL Assessment and Plan Assessment: Assessment and plan Diabetes mellitus Hypertension Hyperlipidemia History of basal skin cancer Spinal stenosis, spondylolisthesis status post laminectomy and decompression POD 0 [id number] glucose 153. On metformin and glipizide at home. Plans: Insulin sliding scale. Hypoglycemic precautions. Regular Accu-Cheks. Diabetic diet. BP 131/72. Plans: Continue amlodipine, Spiriva lactone, hydrochlorothiazide. Monitor vitals, adjust medications as necessary. Plans: Continue simvastatin. Plans: Follow up with Dr. Herndon in clinic. Plans: Management as per orthopedic surgery. Follow PT and OT consult. Ensure adequate pain management. DVT prophylaxis: [Heparin] Discussed with: [Patient] Anticipated discharge: [1-2 days] Anticipated discharge place: [Home] A total of [30] minutes was spent on the care of this complex patient more than 50% of the time was spent in counseling and care coordination.
[2018-11-12] MEDS: INSULIN ASPART (NovoLOG) 100 UNIT/ML VIAL SQ SCH (17:53)
[2018-11-12] MEDS: ATORVASTATIN 20 MG TAB PO SCH (20:47)
[2018-11-12] MEDS: SPIRONOLACTONE-HCTZ 25-25MG 1 EACH TAB PO SCH (20:48)
[2018-11-12] MEDS: HEPARIN SODIUM,PORCINE 5,000 UNIT/ML 1 ML VIAL SQ SCH (20:48)
[2018-11-12] MEDS ORDERED: metFORMIN 500 MG TAB PO SCH (21:00)
[2018-11-12] MEDS ORDERED: NON-FORMULARY DRUG (Glucosamine/Chondr Su A Sod [Osteo Bi-Flex Caplet] 1 TAB) PO SCH (21:00)
[2018-11-12] MEDS: TAMSULOSIN 0.4 MG CAP.ER.24H PO SCH (21:15)
[2018-11-12] MEDS: HYDROcodone/APAP 5-325MG 1 EACH TAB PO PRN (21:31)
[2018-11-12 21:37] LABS: Glucose,Whole Blood 138 mg/dL (75-99)
[2018-11-13] MEDS: SODIUM CHLORIDE 0.9% 1,000 ML IV SCH ×2 (01:08→12:45)
[2018-11-13] MEDS: LACTATED RINGERS 1,000 ML IV SCH (01:08)
[2018-11-13] MEDS: HYDROmorphone 0.5 MG/0.5 ML SYRINGE IVP PRN (02:20)
[2018-11-13] MEDS: HYDROcodone/APAP 5-325MG 1 EACH TAB PO PRN ×4 (05:08→22:21)
[2018-11-13 07:04] LABS: Glucose,Whole Blood 154 mg/dL (75-99)
[2018-11-13] MEDS: INSULIN ASPART (NovoLOG) 100 UNIT/ML VIAL SQ SCH ×3 (07:30→17:58)
[2018-11-13 07:40] LABS: African American GFR (CKD) >90 (>60 ml/min/1.73 sqM); Anion Gap 6 mmol/L; Blood Urea Nitrogen 26 mg/dL (9-20); Calcium 8.5 mg/dL (8.4-10.2); Carbon Dioxide 29 mmol/L (22-30); Chloride 100 mmol/L (98-107); Glucose 153 mg/dL (74-99); Potassium 3.7 mmol/L (3.5-5.1); Sodium 135 mmol/L (137-145)
[2018-11-13 07:47] LABS: Basophils % (A) 0 %; Eosinophils # (A) 0.1 k/uL (0-0.7); Eosinophils % (A) 1 %; HCT 34.6 % (39.0-53.0); Lymphocytes # (A) 1.1 k/uL (1.0-4.8); Lymphocytes % (A) 11 %; MCHC 32.2 g/dL (31.0-37.0); MCV 90.1 fL (80.0-100.0); Mean Platelet Volume 7.9; Monocytes # (A) 0.6 k/uL (0-1.0); Monocytes % (A) 6 %; Neutrophils % (A) 81 %; Platelet Count 213 k/uL (150-450); RBC 3.84 m/uL (4.30-5.90); RDW 15.6 % (11.5-15.5); WBC 9.9 k/uL (3.8-10.6)
[2018-11-13 07:50] LABS: HGB 11.2 gm/dL (13.0-17.5)
[2018-11-13] MEDS: amLODIPine 5 MG TAB PO SCH (09:19)
[2018-11-13] MEDS: HEPARIN SODIUM,PORCINE 5,000 UNIT/ML 1 ML VIAL SQ SCH ×2 (09:20→20:31)
--- NOTE | 2018-11-13 09:21 | P.PN ---
Progress Note - Text Progress Note Date: 11/13/18 Postoperative day #1 Patient is seen and examined today at bedside. The patient has some pain around the surgical site as expected. He is up in a chair. He has some numbness at his right lower extremity over the top of his right foot and toward his heel. He has not had any new weakness in his lower extremities. Pain is being controlled with medication. Physical Exam Afebrile with stable vital signs Abdomen is soft nontender. Chest has good excursion deep and space expiration The incision site is clean dry and intact. No erythema there is no purulence. There is no active drainage. The areas clear. Extremities have not had neurologic change from prior to surgery in terms of his strength. He has sustained dorsal flexion plantar flexion and EHL intact. He has some numbness over the top of this right foot and EHL and dorsiflexion have good strength.. Calves and thighs were soft nontender without evidence of DVT. Assessment/Plan Postoperative day #1 status post compression and fusion L3 4 L4 5 for his severe stenosis with listhesis and lower extremity radiculopathy. Patient is progressing as expected from the surgery. He has some new numbness over the top of his right foot but his strength appears to be intact. He may have some mild irritation or neuropraxia which should resolve as he continues to heal. He has been able to tolerate his diet and he is voiding on his own. We will continue to increase the patient's mobilization with therapy. We will continue pain control with oral or IV medications. We'll continue to follow patient closely. Hopefully they will be mobile and comfortable enough to go home in the next 1-2 days.
[2018-11-13] MEDS: SPIRONOLACTONE-HCTZ 25-25MG 1 EACH TAB PO SCH ×2 (09:28→20:32)
[2018-11-13 11:19] LABS: Glucose,Whole Blood 170 mg/dL (75-99)
--- NOTE | 2018-11-13 15:53 | P.PN ---
Subjective Progress Note Date: 11/13/18 Patient seen and examined at bedside has been up and ambulatory to the restroom and back, postop day #1 status post decompression fusion of L3 4 L4 5 for his severe stenosis with listhesis and lower extremity radiculopathy. Vital signs appear stable blood sugars are within acceptable range, the patient is afebrile hemoglobin 11.2 today Objective - Vital Signs Vital signs: Vital Signs Temp 97.9 F 11/13/18 14:45 Pulse 82 11/13/18 14:45 Resp 19 11/13/18 10:50 BP 128/66 11/13/18 14:45 Pulse Ox 95 11/13/18 14:45 Intake & Output 11/12/18 11/13/18 11/13/18 18:59 06:59 18:59 Intake Total 1621 800 Output Total 1150 1340 Balance 471 -1340 800 Intake: IV 1601 Oral 20 800 Output: Urine 650 1340 Uretheral ([place]) 200 Estimated Blood Loss 500 Other: Voiding Method Indwelling Catheter Indwelling Catheter # Voids 1 - Exam Constitutional: No acute distress, conversant, pleasant Eyes: Anicteric sclerae, moist conjunctiva, no lid-lag, PERRLA ENMT: NC/AT,Oropharynx clear, no erythema, exudates Neck:Supple, FROM, no masses, or JVD, No carotid bruits; No thyromegaly Lungs: Clear to auscultation, Clear to percussion, Normal respiratory effort, no accessory muscle use Cardiovascular: Heart regular in rate and rhythm, No murmurs, gallops, or rubs no peripheral edema Abdominal: Soft Nontender, nom distended, no guarding, no rebound or rigidity, Normoactive bowel sounds No hepatomegaly, No splenomegaly, No palpable mass No abdominal wall hernia noted Skin: Normal temperature, tone, texture, turgor, No induration No subcutaneous nodules, No rash, lesions, No ulcers Extremities:No digital cyanosis No clubbing, Pedal pulses intact and symmetrical Radial pulses intact and symmetrical Normal gait and station, negative Homans, sustained dorsal flexion plantar flexion and EHL intact, mild numbness over the top of this right foot and EHL and dorsiflexion have good strength. - Labs CBC & Chem 7: 11/13/18 07:12 11/13/18 07:12 Labs: Abnormal Lab Results - Last 24 Hours (Table) 11/12/18 11/13/18 11/13/18 Range/Units 21:26 06:52 07:12 RBC 3.84 L (4.30-5.90) m/uL Hgb 11.2 L D (13.0-17.5) gm/dL Hct 34.6 L (39.0-53.0) % RDW 15.6 H (11.5-15.5) % Neutrophils # 8.0 H (1.3-7.7) k/uL Sodium (137-145) mmol/L BUN (9-20) mg/dL Glucose (74-99) mg/dL POC Glucose (mg/dL) 138 H 154 H (75-99) mg/dL 11/13/18 11/13/18 Range/Units 07:12 11:18 RBC (4.30-5.90) m/uL Hgb (13.0-17.5) gm/dL Hct (39.0-53.0) % RDW (11.5-15.5) % Neutrophils # (1.3-7.7) k/uL Sodium 135 L (137-145) mmol/L BUN 26 H (9-20) mg/dL Glucose 153 H (74-99) mg/dL POC Glucose (mg/dL) 170 H (75-99) mg/dL Assessment and Plan (1) Type 2 diabetes mellitus Narrative/Plan: * Blood sugars controlled on current correctional scale insulin coverage * Continue with Accu-Cheks Current Visit: Yes Status: Acute Code(s): E11.9 - TYPE 2 DIABETES MELLITUS WITHOUT COMPLICATIONS SNOMED Code(s): 20091864 (2) Essential hypertension Narrative/Plan: * Blood pressure stable and controlled * Continue current regimen of amlodipine spironolactone and HCTZ Current Visit: Yes Status: Acute Code(s): I10 - ESSENTIAL (PRIMARY) HYPERTENSION SNOMED Code(s): 82712883 (3) Hyperlipidemia Narrative/Plan: * Continue regimen with simvastatin Current Visit: Yes Status: Acute Code(s): E78.5 - HYPERLIPIDEMIA, UNSPECIFIED SNOMED Code(s): 13851124 Plan: The patient is doing well and is currently medically stable, our service will plan to sign off today. For any further questions or concerns please hesitate to contact the [facility] inpatient team
[2018-11-13 17:54] LABS: Glucose,Whole Blood 150 mg/dL (75-99)
[2018-11-13] MEDS: TAMSULOSIN 0.4 MG CAP.ER.24H PO SCH (20:31)
[2018-11-13] MEDS: ATORVASTATIN 20 MG TAB PO SCH (20:31)
[2018-11-13 20:38] LABS: Glucose,Whole Blood 213 mg/dL (75-99)
[2018-11-14] MEDS: HYDROmorphone 0.5 MG/0.5 ML SYRINGE IVP PRN (01:14)
[2018-11-14] MEDS: SODIUM CHLORIDE 0.9% 1,000 ML IV SCH ×2 (03:17→12:55)
[2018-11-14] MEDS: LACTATED RINGERS 1,000 ML IV SCH (03:41)
[2018-11-14 07:07] LABS: Glucose,Whole Blood 147 mg/dL (75-99)
[2018-11-14] MEDS: INSULIN ASPART (NovoLOG) 100 UNIT/ML VIAL SQ SCH ×3 (07:42→17:24)
[2018-11-14] MEDS: HEPARIN SODIUM,PORCINE 5,000 UNIT/ML 1 ML VIAL SQ SCH ×2 (07:44→21:21)
[2018-11-14] MEDS: amLODIPine 5 MG TAB PO SCH (07:44)
[2018-11-14] MEDS: HYDROcodone/APAP 5-325MG 1 EACH TAB PO PRN (07:44)
[2018-11-14] MEDS: SPIRONOLACTONE-HCTZ 25-25MG 1 EACH TAB PO SCH ×2 (07:45→21:22)
--- NOTE | 2018-11-14 09:10 | P.PN ---
Progress Note - Text Progress Note Date: 11/14/18 Orthopedic Spine Patient is a pleasant 68-year-old male who is seen and examined at the bedside following posterior lateral decompression and fusion performed Saturday. Patient states they are doing okay postsurgically. He continues to have pain at the surgical sites most significant on the left and left lower extremity radiculopathy which was present prior to surgical intervention. He has been expressing some numbness down the right lower extremity postoperatively that is acute it states it has been improving as compared to yesterday. He's been able to work with physical therapy increase ambulation. He does continue to have difficulty with pain controlled oral medications and continues to require IV Dilaudid. Currently does not complain of nausea, vomiting, fever, or chills. Patient states pain has been adequately controlled with combination of IV and o ral medications. Patient is eating and voiding freely without difficulty. He has not had a bowel movement over the past 2 days and states is fairly regularly. He does have some gas. He is not currently experiencing significant abdominal pain. Physical Exam Lumbar Fusion: Status post surgical day number 2 Patient is awake, alert, and oriented 3 Vital signs stable Good chest excursion with deep inspiration and expiration Abdomen soft nontender Dorsiflexion, plantarflexion, and extensor hallucis longus positive sustained bilaterally No signs or symptoms of DVT; no calf pain; pneumatic cuffs not currently intact bilateral lower extremities Dressing is clean, dry, and intact; no erythema, purulence, or signs of infection Neurovascularly intact bilaterally lower extremities Assessment: L3-4 and L4-5 minimally invasive posterior lateral decompression and fusion with L3-4 transforaminal lumbar interbody fusion Low back pain Chronic left lower extremity radiculopathy Acute right lower extremity radiculopathy postoperatively improving since yesterday L3-4 spondylolisthesis History of previous laminectomy discectomy L4-5 and L5-S1 Low back pain History of hypertension, hyperlipidemia, and type 2 diabetes Plan: 1. Ambulate as tolerated; work with Physical Therapy to increase mobilization 2. Continue pain control with IV and oral medications; we will plan to increase [place] to [place] 7.5 mg/325 mg 1-2 tabs every 4 hours as needed for pain. We will plan to start weaning off IV Dilaudid in anticipation for discharge home over the next 1-2 days. MAPS has been reviewed today, 11/14/2018, with an Overall Overdose Risk Score of 200. An "Opiod Start Talking" Forn has been signed by the patient and myself in place in the patient's chart. A prescription has been written for [place] 7.5 mg/325 mg take 1-2 tabs every 4 hours as needed for pain, dispensed #84. Patient should avoid anti-inflammatory medications over the next 6 weeks postoperatively 3. Dressing to remain intact and may be changed to Telfa and Tegaderm 4. Medical management can continue to manage patient for patient's other medical issues 5. We will continue to follow the patient closely; we will plan have the patient discharged home in excellent 2 days depending on his progress 6. Patient can follow-up with Flavio Bills PA-C or Dr. Franklyn Dutton at [facility] in 2-3 weeks following discharge
[2018-11-14 12:31] LABS: Glucose,Whole Blood 159 mg/dL (75-99)
[2018-11-14] MEDS ORDERED: HYDROcodone/APAP 7.5-325MG 1 EACH TAB PO PRN (12:52)
[2018-11-14] MEDS: HYDROcodone/APAP 7.5-325MG 1 EACH TAB PO PRN ×2 (13:02→19:30)
[2018-11-14 16:43] LABS: Glucose,Whole Blood 205 mg/dL (75-99)
[2018-11-14] MEDS: DOCUSATE 100 MG CAP PO SCH (21:21)
[2018-11-14] MEDS: ATORVASTATIN 20 MG TAB PO SCH (21:21)
[2018-11-14] MEDS: TAMSULOSIN 0.4 MG CAP.ER.24H PO SCH (21:21)
[2018-11-14 23:31] LABS: Glucose,Whole Blood 191 mg/dL (75-99)
[2018-11-15] MEDS: HYDROmorphone 0.5 MG/0.5 ML SYRINGE IVP PRN (01:21)
[2018-11-15] MEDS: HYDROcodone/APAP 7.5-325MG 1 EACH TAB PO PRN ×4 (03:16→21:08)
[2018-11-15] MEDS: LACTATED RINGERS 1,000 ML IV SCH (03:33)
[2018-11-15] MEDS: SODIUM CHLORIDE 0.9% 1,000 ML IV SCH ×2 (03:33→21:09)
[2018-11-15 07:08] LABS: Glucose,Whole Blood 136 mg/dL (75-99)
[2018-11-15] MEDS: INSULIN ASPART (NovoLOG) 100 UNIT/ML VIAL SQ SCH ×3 (09:21→17:21)
[2018-11-15] MEDS: HEPARIN SODIUM,PORCINE 5,000 UNIT/ML 1 ML VIAL SQ SCH ×2 (09:41→21:09)
[2018-11-15] MEDS: SPIRONOLACTONE-HCTZ 25-25MG 1 EACH TAB PO SCH ×2 (09:41→21:09)
[2018-11-15] MEDS: amLODIPine 5 MG TAB PO SCH (09:42)
[2018-11-15] MEDS: DOCUSATE 100 MG CAP PO SCH ×2 (09:42→21:09)
--- NOTE | 2018-11-15 11:02 | P.PN ---
Subjective Progress Note Date: 11/15/18 This patient is a 68-year-old male who is status-post posterior decompression and fusion performed on Saturday11/12/[address] Dutton. The patient states he is doing well postoperatively. He continues to have pain at the surgical sites, as well as left lower extremity radiculopathy which was present prior to surgery. He also notes he's been experiencing numbness down the right lower extremity postoperatively, which has continued to improve postoperatively. He states he has not had IV Dilaudid today or last night, he states his pain is currently well-controlled on oral [place]. He states he continues to ambulate in his room in the halls without issue. He has been up with physical therapy today already. Patient states he is tolerating his diet well. He has not yet had a bowel movement postoperatively, although he denies abdominal pain and he is passing gas. He denies any new complaints today. Vital signs stable. Objective - Vital Signs Vital signs: Vital Signs Temp 98.4 F 11/15/18 07:00 Pulse 77 11/15/18 07:00 Resp 14 11/15/18 07:00 BP 130/70 11/15/18 07:00 Pulse Ox 96 11/15/18 07:00 Intake & Output 11/14/18 11/15/18 11/15/18 18:59 06:59 18:59 Intake Total 420 240 100 Balance 420 240 100 Intake: Oral 420 240 100 Other: Voiding Method Toilet # Voids 2 1 - Exam O examination, the patient is lying in bed in no distress. He is alert and oriented 3. On inspection of the surgical site, there is a clean, dry, intact dressing in place. There is no drainage or bleeding through the dressing. There is no surrounding erythema, warmth, fluctuance. Calves are soft and nontender bilaterally. Patient is able to actively dorsiflex and plantarflex the ankle, as well as dorsiflex and plantarflex the great toe bilaterally, without issue. Neurovascular status is intact of the lower extremities bilaterally. - Labs CBC & Chem 7: 11/13/18 07:12 11/13/18 07:12 Labs: Abnormal Lab Results - Last 24 Hours (Table) 11/14/18 11/14/18 11/14/18 Range/Units 12:28 16:41 23:20 POC Glucose (mg/dL) 159 H 205 H 191 H (75-99) mg/dL 11/15/18 Range/Units 07:06 POC Glucose (mg/dL) 136 H (75-99) mg/dL Assessment and Plan Assessment: Status-post L3-4 L4-5 minimally invasive posterior decompression and fusion with L3-4 transforaminal lumbar interbody fusion on 11/12/[address] Dutton. Post- operative day #3. Right lower extremity radiculopathy postoperatively, improving. History of previous laminectomy L4-5 and L5-S1. Plan: - Ambulation as tolerated, continue physical therapy to increase mobilization. - Continue pain control with IV and oral medications. Decrease use of IV Dilaudid as tolerated. - Dressing is to remain intact and may be changed to Telfa and Tegaderm. - Appreciate internal medicine consult for medical management. - Anticipate discharge home within the next 24 hours. - Patient will follow-up with Rene Bills PA-C or Dr. Dutton at [facility] in 2-3 weeks following discharge
[2018-11-15 11:46] LABS: Glucose,Whole Blood 164 mg/dL (75-99)
[2018-11-15 17:15] LABS: Glucose,Whole Blood 159 mg/dL (75-99)
[2018-11-15 21:04] LABS: Glucose,Whole Blood 160 mg/dL (75-99)
[2018-11-15] MEDS: ATORVASTATIN 20 MG TAB PO SCH (21:09)
[2018-11-15] MEDS: TAMSULOSIN 0.4 MG CAP.ER.24H PO SCH (21:09)
[2018-11-16] MEDS: HYDROcodone/APAP 7.5-325MG 1 EACH TAB PO PRN ×2 (03:12→09:07)
[2018-11-16] MEDS: LACTATED RINGERS 1,000 ML IV SCH (06:06)
[2018-11-16 07:04] LABS: Glucose,Whole Blood 161 mg/dL (75-99)
[2018-11-16 08:02] VITALS: BP 135/69; PULSE 82; RESP 14; TEMP 97.9
[2018-11-16] MEDS: INSULIN ASPART (NovoLOG) 100 UNIT/ML VIAL SQ SCH (08:02)
[2018-11-16] MEDS: HEPARIN SODIUM,PORCINE 5,000 UNIT/ML 1 ML VIAL SQ SCH (08:04)
[2018-11-16] MEDS: DOCUSATE 100 MG CAP PO SCH (08:04)
[2018-11-16] MEDS: amLODIPine 5 MG TAB PO SCH (08:04)
[2018-11-16] MEDS: SODIUM CHLORIDE 0.9% 1,000 ML IV SCH (08:05)
[2018-11-16] MEDS: SPIRONOLACTONE-HCTZ 25-25MG 1 EACH TAB PO SCH (08:05)
--- NOTE | 2018-11-16 10:05 | P.DS ---
Providers Date of admission: 11/12/18 06:24 Expected date of discharge: 11/16/18 Attending physician: Mike Dutton Consults: 11/12/18 11:46 Consult Physician Routine Consulting Provider: Katja Bradley Consult Reason/Comments: Medical management Do you want consulting provider notified?: Yes Primary care physician: [facility] Course: This is a 68-year-old male with a past medical history of hyperlipidemia, hypertension, type 2 diabetes that was seen by Dr. Dutton in the office for his long-standing issues with his lower back and lower extremities. He failed to have a relief of symptoms despite aggressive conservative treatment, and was also experiencing worsening of his symptoms and weakness in his lower extremities. Therefore, surgery was recommended. Patient underwent a laminectomy decompression L3-4, revision laminectomy decompression L4-5, minimally invasive posterior lateral decompression and fusion L3-4 and L4-5, minimally invasive transforaminal lumbar interbody fusion L3-4, and discectomy for decompression L3-4 on 11/12/[address] Dutton. The patient was admitted to [facility] following this procedure. Procedure was performed without complication or sequelae. Patient is doing well postoperatively. Vital signs and postoperative labs are stable postoperative day #4. Patient was seen at bedside today and he has no new complaints. He states his pain is well-controlled on oral medications, he has not required the use of IV medications today or yesterday. He has mild surgical site pain, which is expected. He has been up with physical therapy this morning and states that he is ambulating with minimal pain or issue. He continues to have symptoms into the numbness in the right lower extremity, although it continues to improve. His states he has not had a bowel movement postoperatively, although he denies abdominal pain. He states he has been passing a significant amount of gas. He is tolerating his diet well. He denies chest pain, shortness of breath, fevers, chills. On exam the patient is sitting up in bed in no acute distress. Patient is alert and oriented 3. is bedside. Inspection of the surgical site, there is a clean, dry, intact dressing in place. Dressing is taken down and reveals a benign surgical incisions. Steri-Strips are in place. There is no surrounding erythema, warmth, fluctuance; there are no signs of infection. New dressing of Telfa and Tegaderm placed. Calves are soft and nontender bilaterally. Patient is able to actively dorsiflex and plantar flex the ankle, as well as dorsiflex and plantar flex the great toe bilaterally, without issue. Neurovascular status and circulatory status is intact of the lower extremities bilaterally. Dorsalis pedis pulse +2 bilaterally. The patient is discharged home in good condition, pending medical clearance today. Please see discharge orders. Please refer to the [facility] rec for accurate list of medications. Patient Condition at Discharge: Fair Plan - Discharge Summary Discharge Rx Participant: Yes New Discharge Prescriptions: New HYDROcodone/APAP 7.5-325MG [[place] 7.5-325] 1 - 2 tab PO Q4H PRN 7 Days #84 tab PRN Reason: Pain No Action metFORMIN HCL [Metformin HCl ER] 1,000 mg PO BID amLODIPine BESYLATE [Amlodipine Besylate] 5 mg PO DAILY Simvastatin 40 mg PO HS Tamsulosin [Flomax] 0.4 mg PO HS@1999 Spironolactone-Hctz 25-25Mg [Aldactazide 25-25 MG] 1 tab PO BID Glucosamine/Chondr Zhao A Sod [Osteo Bi-Flex Caplet] 1 tab PO BID glipiZIDE XL [Glucotrol XL] 5 mg PO DAILY Naproxen Sodium [Aleve] 220 mg PO Q8H PRN PRN Reason: Pain Ibuprofen [Motrin] 800 mg PO TID #20 tab Cephalexin [Keflex] 500 mg PO Q6HR Discharge Medication List Simvastatin 40 mg PO HS 02/10/15 [History] amLODIPine BESYLATE [Amlodipine Besylate] 5 mg PO DAILY 02/10/15 [History] metFORMIN HCL [Metformin HCl ER] 1,000 mg PO BID 02/10/15 [History] Glucosamine/Chondr Zhao A Sod [Osteo Bi-Flex Caplet] 1 tab PO BID 11/02/18 [History] Ibuprofen [Motrin] 800 mg PO TID #20 tab 11/02/18 [Rx] Naproxen Sodium [Aleve] 220 mg PO Q8H PRN 11/02/18 [History] Spironolactone-Hctz 25-25Mg [Aldactazide 25-25 MG] 1 tab PO BID 11/02/18 [History] Tamsulosin [Flomax] 0.4 mg PO HS@2000 11/02/18 [History] glipiZIDE XL [Glucotrol XL] 5 mg PO DAILY 11/02/18 [History] Cephalexin [Keflex] 500 mg PO Q6HR 11/11/18 [History] HYDROcodone/APAP 7.5-325MG [[place] 7.5-325] 1 - 2 tab PO Q4H PRN 7 Days #84 tab 11/14/18 [Rx] Follow up Appointment(s)/Referral(s): Flavio Bills, ALEXANDER [PHYSICIAN LIFE CARE PLANNER] - 12/02/18 11:00 am (Patient may follow-up with Flavio Bills PA-C or Dr. Franklyn Dutton at [facility] in 2-3 weeks following discharge. ) Activity/Diet/Wound Care/Special Instructions: 1. Patient may shower with Tegaderm dressing intact. 2. Patient may remove Tegaderm dressing in 3 days and shower without a dressing at that time. 3. Patient should keep Steri-Strips intact and allow them to fall off naturally. 4. Patient should refrain from driving until at least after their first follow- up appointment in the office. 5. Patient should avoid excessive bending, twisting, and lifting; no lifting greater than 10 pounds 6. Take medications as prescribed 7. Do not soak in tub Discharge Disposition: HOME SELF-CARE
[2018-11-16 11:42] LABS: Glucose,Whole Blood 199 mg/dL (75-99)
== END 2018-11-16 13:01 | disposition home or self-care (01) | DRG 455 ==
LOC: 2ORMAIN 06:24 → 4SSUR 14:08
PROVIDERS: ADMIT Orthopaedic Surgery Orthopaedic Surgery of the Spine; ATTEND Orthopaedic Surgery Orthopaedic Surgery of the Spine
PROC: 0SG0071 Fusion of Lumbar Vertebral Joint with Autologous Tissue Substitute, Posterior Approach, Posterior Column, Open Approach (ICD-10-PCS; 2018-11-12)
PROC: 0ST20ZZ Resection of Lumbar Vertebral Disc, Open Approach (ICD-10-PCS; 2018-11-12)
PROC: 01NB0ZZ Release Lumbar Nerve, Open Approach (ICD-10-PCS; 2018-11-12)
PROC: 0QW004Z Revision of Internal Fixation Device in Lumbar Vertebra, Open Approach (ICD-10-PCS; 2018-11-12)
PROC: 07DS3ZZ Extraction of Vertebral Bone Marrow, Percutaneous Approach (ICD-10-PCS; 2018-11-12)
PROC: 30233N0 Transfusion of Autologous Red Blood Cells into Peripheral Vein, Percutaneous Approach (ICD-10-PCS; 2018-11-12)
PROC: 0SG10AJ Fusion of 2 or more Lumbar Vertebral Joints with Interbody Fusion Device, Posterior Approach, Anterior Column, Open Approach (ICD-10-PCS; principal; 2018-11-12 07:30)
DX: M48.062 Spinal stenosis, lumbar region with neurogenic claudication (principal); E11.9 Type 2 diabetes mellitus without complications; E78.5 Hyperlipidemia, unspecified; F90.9 Attention-deficit hyperactivity disorder, unspecified type; H91.91 Unspecified hearing loss, right ear; I10 Essential (primary) hypertension; M43.16 Spondylolisthesis, lumbar region; M51.16 Intervertebral disc disorders with radiculopathy, lumbar region; M47.9 Spondylosis, unspecified; I83.92 Asymptomatic varicose veins of left lower extremity; K57.90 Diverticulosis of intestine, part unspecified, without perforation or abscess without bleeding; M19.90 Unspecified osteoarthritis, unspecified site; N40.2 Nodular prostate without lower urinary tract symptoms; R26.81 Unsteadiness on feet; M21.372 Foot drop, left foot; E66.9 Obesity, unspecified; Z68.29 Body mass index [BMI] 29.0-29.9, adult; Z79.84 Long term (current) use of oral hypoglycemic drugs; Z79.899 Other long term (current) drug therapy; Z85.828 Personal history of other malignant neoplasm of skin; Z87.442 Personal history of urinary calculi; Z87.891 Personal history of nicotine dependence; Z88.2 Allergy status to sulfonamides; Z88.8 Allergy status to other drugs, medicaments and biological substances; Z82.49 Family history of ischemic heart disease and other diseases of the circulatory system; Z83.3 Family history of diabetes mellitus; Z80.9 Family history of malignant neoplasm, unspecified; Z82.3 Family history of stroke
CPT/HCPCS: 36415; 72100; 80048; 85025; 86850; 86900; 86901

== ENCOUNTER → 2019-06-23 | Outpatient (CLI) | payer MEDICARE, OTHER ==
--- NOTE | 2019-06-23 11:56 | USB ---
Reason for exam: clinical finding. Indicated problem(s): lump or thickening and pain in the left breast. 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 US Breast LT Left limited breast ultrasound including focal area of concern, retroareolar and axilla demonstrates a 1.0 x 0.9 x 1.2cm solid, hypoechoic lesion at the posterior nipple, subareolar density suggestive of gynecomastia. Bilateral subareolar groups scanned. These results were verbally communicated with the patient and result sheet given to the patient on 06/23/19. ASSESSMENT: Incomplete: need additional imaging evaluation, BI-RAD 0 RECOMMENDATION: Special view mammogram of both breasts.
--- NOTE | 2019-06-23 11:59 | MM ---
Reason for exam: clinical finding. MG Diagnostic Mammo w CAD GELY Bilateral CC and MLO view(s) were taken. ML view(s) were taken of the left breast. There are scattered fibroglandular densities. Mild asymmetry left gynecomastia is demonstrated. These results were verbally communicated with the patient and result sheet given to the patient on 06/23/19. ASSESSMENT: Benign, BI-RAD 2 RECOMMENDATION: Clinical management of both breasts. Manage on a clinical basis with regard to gynecomastia.
== END | disposition home or self-care (01) ==
LOC: RADUSWWP 09:56
PROVIDERS: ATTEND Internal Medicine
DX: N63.20 Unspecified lump in the left breast, unspecified quadrant (principal); R92.8 Other abnormal and inconclusive findings on diagnostic imaging of breast
CPT/HCPCS: 77066

== ENCOUNTER → 2021-06-30 | Outpatient (CLI) | payer MEDICARE ==
--- NOTE | 2021-06-30 14:34 | XR ---
EXAMINATION TYPE: XR KUB DATE OF EXAM: 06/30/2021 COMPARISON: 05/22/2017 HISTORY: Left-sided renal stone may TECHNIQUE: One view abdominal series FINDINGS: Left kidney: There are approximately 8 calcifications overlying the left kidney similar to the prior exam of the largest measuring 1.6 cm. Right kidney: There is a punctate 2 mm calcification overlying the lower pole the right kidney. Hypertrophic, degenerative and postsurgical change involving the vertebral column. 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 Bowel gas pattern nonspecific with r etained fecal debris. Correlate for constipation. IMPRESSION: 1. Bilateral nephrolithiasis similar to the prior exam. 2. Correlate for constipation.
== END | disposition home or self-care (01) ==
LOC: RADXRMAIN 13:53
PROVIDERS: ATTEND Urology
DX: N20.0 Calculus of kidney (principal)
CPT/HCPCS: 74018

== ENCOUNTER → 2022-02-05 | Outpatient (CLI) | payer MEDICARE ==
--- NOTE | 2022-02-05 10:52 | XR ---
KUB History: N20 calculus kidney From a KUB and T2 images correlated prior exam dated 06/30/2021 Multiple calcifications are again noted over the lower pole of the left kidney, the largest measures approximately 15 mm, there are likely at least 9-10 calcifications present. Overlying bowel gas could obscure detail. Postoperative changes are again noted to the lower lumbar spine. Arthropathy noted w ithin the hips. Retained fecal debris present throughout the suspicion of the colon. IMPRESSION: Left-sided nephrolithiasis
== END | disposition home or self-care (01) ==
LOC: RADXRMAIN 09:22
PROVIDERS: ATTEND Urology
DX: N20.0 Calculus of kidney (principal)
CPT/HCPCS: 74018